=== PATIENT | male | born 1945 | race African-American/Black ===

== ENCOUNTER 2016-06-04 20:27 | Inpatient (IN) | payer MEDICARE, OTHER ==
[~2016-06-04] VITALS: Ht 175.3 cm; Wt 81.6 kg
[2016-06-04 22:13] VITALS: BP 124/95
[2016-06-04] MEDS ORDERED: DuoNeb 0.5-3(2.5)mg/3ml neb HHN PRN (22:45)
[2016-06-04] MEDS ORDERED: Miralax 17gm pkt ORAL PRN (22:45)
[2016-06-04] MEDS ORDERED: Morphine Sulfate 2mg/ml Inj IVP PRN (22:45)
[2016-06-04] MEDS ORDERED: Nitroglycerin Subl 0.4mg tab (Bottle Of 25) SL PRN (22:45)
[2016-06-04 22:48] LABS: APPEARANCE,URINE CLEAR; KETONES,URINE NEGATIVE (NEGATIVE); LEUKOCYTE ESTERASE ,URINE NEGATIVE (NEGATIVE); NITRITE,URINE NEGATIVE (NEGATIVE); PH,URINE 5 (4.5-8.0); PROTEIN,URINE NEGATIVE (NEGATIVE); UROBILINOGEN,URINE NORMAL MG/DL (0.0-1.0)
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
[2016-06-04 23:36] VITALS: BP 122/90
[2016-06-04] MEDS ORDERED: Acetaminophen 650 MG SUPP RECTAL ONE (23:45)
[2016-06-04 23:48] LABS: EOSINOPHILS % (AUTO) 0.3 % (0.0-3.0); LYMPHOCYTES % (AUTO) 5.5 % (20.0-45.0); MEAN CORPUSCULAR HEMOGLOBIN 31.3 PG (27.0-31.0); MEAN CORPUSCULAR HGB CONC 33.5 G/DL (32.0-36.0); MEAN CORPUSCULAR VOLUME 93 FL (80-99); MEAN PLATELET VOLUME 9.1 FL (6.5-10.1); NEUTROPHILS % (AUTO) 82.1 % (45.0-75.0); PLATELET COUNT 141 K/UL (150-450); RED CELL DISTRIBUTION WIDTH 12.7 % (11.6-14.8); WHITE BLOOD COUNT 10.7 K/UL (4.8-10.8)
[2016-06-04 23:49] LABS: INR 1.3 (0.9-1.1); PROTHROMBIN TIME 13.4 SEC (9.30-11.50)
[2016-06-04 23:56] LABS: TROPONIN I < 0.30 ng/mL (<=0.30)
[2016-06-04 23:59] LABS: ALANINE AMINOTRANSFERASE 6 U/L (3-41); ALBUMIN/GLOBULIN RATIO 1.4 (1.0-2.7); ANION GAP 17 (5-15); ASPARTATE AMINO TRANSFERASE 22 U/L (5-40); CALCIUM 8.2 mg/dL (8.6-10.2); CARBON DIOXIDE 20 mEQ/L (20-30); CHLORIDE 104 mEQ/L (98-107); CREATININE 1.5 mg/dL (0.7-1.2); HEMOLYSIS 4; LIPASE 47 U/L (< 60); POTASSIUM 4.4 mEQ/L (3.4-4.9); SODIUM 141 mEQ/L (135-145); TOTAL PROTEIN 6.2 g/dL (6.6-8.7)
[2016-06-05] VITALS (8 sets, daily range): BP systolic 97–135; BP diastolic 52–60
[2016-06-05] MEDS ORDERED: Vancomycin 1.5 GM in D5W 325 ML IVPB STA (00:11)
[2016-06-05] MEDS ORDERED: metroNIDAZOLE 500mg 100 ML IVPB ONE (00:15)
[2016-06-05] MEDS ORDERED: Cefepime HCl 1 GM in D5W 55 ML IVPB ONE (00:15)
[2016-06-05] MEDS ORDERED: Cefepime 1gm vial ONE (00:21)
[2016-06-05] MEDS ORDERED: Vancomycin 1 GM in D5W 275 ML IV SCH (00:30)
[2016-06-05] MEDS ORDERED: VITAMIN B-1100 MG ORAL (01:13)
[2016-06-05] MEDS ORDERED: LISINOPRIL20 MG ORAL (01:13)
[2016-06-05] MEDS ORDERED: IBUPROFEN600 MG ORAL (01:13)
[2016-06-05] MEDS ORDERED: ZOCOR20 M1 ORAL (01:13)
[2016-06-05] MEDS ORDERED: TYLENOL EXTRA500 MG ORAL (01:13)
[2016-06-05] MEDS ORDERED: FUROSEMIDE40 MG ORAL (01:13)
[2016-06-05] MEDS ORDERED: IPRATROPIU0.2 MG/1 M HHN (01:13)
[2016-06-05] MEDS ORDERED: LEVETIRACETAM500 MG ORAL (01:13)
[2016-06-05] MEDS ORDERED: MULTIVITAMINS1 EAC8 ORAL (01:13)
[2016-06-05] MEDS ORDERED: EMLA CREAM30 GM TOPIC (01:13)
[2016-06-05] MEDS ORDERED: VITAMIN C500 M1 ORAL (01:13)
[2016-06-05] MEDS ORDERED: TRAZODONE HCL50 MG ORAL (01:13)
[2016-06-05] MEDS ORDERED: ACIDOPHILUS PR1 EACH PO (01:13)
[2016-06-05] MEDS ORDERED: LYRICA75 M1 ORAL (01:13)
[2016-06-05] MEDS ORDERED: SYNTHROID25 MCG ORAL (01:13)
[2016-06-05] MEDS ORDERED: MUSCLE RUB CRE113 GM TP (01:13)
[2016-06-05] MEDS ORDERED: Vancomycin 1gm inj IVPB ONE (01:39)
[2016-06-05] MEDS ORDERED: Vancomycin 1.5gm/D5W 300ml 300 ML IVPB ONE (02:00)
[2016-06-05 07:04] LABS: ALANINE AMINOTRANSFERASE 8 U/L (3-41); ALBUMIN/GLOBULIN RATIO 1.6 (1.0-2.7); ANION GAP 16 (5-15); ASPARTATE AMINO TRANSFERASE 31 U/L (5-40); CALCIUM 8.5 mg/dL (8.6-10.2); CARBON DIOXIDE 21 mEQ/L (20-30); CHLORIDE 102 mEQ/L (98-107); CREATININE 1.5 mg/dL (0.7-1.2); HEMOLYSIS 3; POTASSIUM 4.3 mEQ/L (3.4-4.9); SODIUM 139 mEQ/L (135-145)
[2016-06-05 07:33] LABS: BASOPHILS % (AUTO) 0.8 % (0.0-2.0); EOSINOPHILS % (AUTO) 0.1 % (0.0-3.0); LYMPHOCYTES % (AUTO) 9.8 % (20.0-45.0); MEAN CORPUSCULAR HEMOGLOBIN 30.6 PG (27.0-31.0); MEAN CORPUSCULAR HGB CONC 32.5 G/DL (32.0-36.0); MEAN CORPUSCULAR VOLUME 94 FL (80-99); MONOCYTES % (AUTO) 13.2 % (1.0-10.0); NEUTROPHILS % (AUTO) 76.1 % (45.0-75.0); PLATELET COUNT 147 K/UL (150-450); RED BLOOD COUNT 3.74 M/UL (4.70-6.10); RED CELL DISTRIBUTION WIDTH 12.7 % (11.6-14.8); WHITE BLOOD COUNT 8.5 K/UL (4.8-10.8)
[2016-06-05] MEDS ORDERED: Cefepime HCl 2 GM in D5W 110 ML IV SCH (09:00)
--- NOTE | 2016-06-05 09:44 | Diagnostic Imaging Report ---
Indication: ABD DIST, abdominal pain Technique: Spiral acquisitions obtained through the abdomen and pelvis. No oral contrast utilized, per emergency room physician request No IV contrast utilized, per referring physician request.. Multiplanar reconstructions were generated. Total dose length product 1026 mGycm. CTDIvol(s) 19 mGy Comparison: None Findings: There is colonic diverticulosis. The appendix is normal. There is dilatation of the transverse colon, but no abrupt transition point is demonstrated. There is also distention of the distal sigmoid colon, but no abrupt transition is demonstrated. No small bowel distention. No definite small bowel wall thickening. No free or loculated intraperitoneal air or fluid is evident. The distal esophagus, stomach, duodenum is unremarkable. Lack of IV contrast limits assessment of the solid organs. The liver, gallbladder, bile ducts, pancreas, spleen, adrenals, kidneys are unremarkable. No retroperitoneal or mesenteric mass or adenopathy. No pelvic mass or adenopathy. The bladder is empty, contains a Coffman catheter. The lung bases demonstrate compressive atelectatic changes. Metallic foreign bodies are seen in the upper abdomen anterior and superior to the left lobe liver. There are mild degenerative changes of the lower thoracic spine. There is equivocally a very slight wedge compression fracture deformity of the T11 vertebral body. Impression: Focal areas of dilatation of the colon, as described, probably functional as no transition or obstructing lesion is demonstrated No definite acute process otherwise Diverticulosis. No evidence of diverticulitis Bilateral basilar compressive pulmonary parenchymal atelectatic changes Equivocal slight wedge compression fracture deformity of the T11 vertebral body, age indeterminate if real Metallic foreign bodies in the upper anterior abdomen. Correlate with clinical history Coffman catheter This agrees with the preliminary interpretation provided overnight by [facility] teleradiology service. The CT scanner at [facility] is accredited by the [employer] and the scans are performed using protocols designed to limit radiation exposure to as low as reasonably achievable to attain images of sufficient resolution adequate for diagnostic evaluation.
[2016-06-05] MEDS: Heparin 5000 units/ml inj SUBQ SCH ×2 (10:20→21:00)
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
--- NOTE | 2016-06-05 11:41 | Consultation ---
Consult Note Consult Note ID Dic# [id number] JENNY GAMBLE M.D. Jun 05, 2016 11:41
--- NOTE | 2016-06-05 18:04 | History & Physical ---
History and Physical History & Physicial Dictated for Int Med-Dr Medrano no. [id number]. FACUNDO SAENZ Jun 05, 2016 18:04
--- NOTE | 2016-06-05 22:08 | History and Physical Report ---
DATE OF ADMISSION: 06/04/2016 CHIEF COMPLAINT: The patient is a 71-year-old male, presents with complaint of fever. HISTORY OF PRESENT ILLNESS: The patient is a resident of [facility]. According to staff at [facility], the patient began to experience fevers over 101 degrees Fahrenheit. The patient was transferred to [facility] emergency room. The patient denied cough. The patient denied dysuria. The patient was admitted for fever of unknown origin. PAST MEDICAL HISTORY: Significant for, 1. Alzheimer's dementia. 2. History of cerebrovascular accident. 3. Right hemiplegia . 4. Bilateral lower extremity edema. 5. Prostate cancer. 6. Hypertension. PAST SURGICAL HISTORY: The patient denies. CURRENT MEDICATIONS: 1. Tylenol 650 mg one tablet p.o. every four hours as needed. 2. Ibuprofen 600 mg one tablet p.o. every 6 hours as needed. 3. Atrovent nebulized q.6 hours p.r.n. 4. Lasix 40 mg one tablet p.o. daily. 5. Keppra 500 mg p.o. twice daily. 6. Lisinopril 20 mg one tablet p.o. twice daily. 7. Multivitamin p.o. daily. 8. Lyrica 75 mg one tablet p.o. three times daily. 9. Zocor 20 mg one tablet p.o. at nightly . 10. Synthroid 50 mcg p.o. daily. 11. Thiamin 100 mg p.o. daily. 12. Trazodone 50 mg one tablet p.o. at nightly. ALLERGIES: No known drug allergies. REVIEW OF SYSTEMS: Constitutional: The patient denies weight loss or weight gain. The patient complains of fever as above. HEENT: The patient denies ear or throat pain. The patient denies headache. Cardiovascular: The patient denies palpitations or chest pain. Chest: The patient denies wheezes or shortness of breath. Abdomen: The patient denies nausea, vomiting, diarrhea, or constipation. Genitourinary: The patient denies dysuria or increased frequency of urination. Neuromuscular: The patient denies seizures or generalized weakness. SOCIAL HISTORY: The patient is a . The patient is a resident of [facility]. The patient denies tobacco or alcohol use. PHYSICAL EXAMINATION: VITAL SIGNS: Temperature 101.7 degrees, pulse 93, respirations 18, and blood pressure 120/54. GENERAL: The patient is a well-developed and well-nourished male, in no apparent distress. HEENT: Eyes, pupils are equal and responsive to light and accommodation. Extraocular movements intact. NECK: Supple without lymphadenopathy. CHEST: Lungs are clear to auscultation bilaterally without wheezes or rales. CARDIOVASCULAR: Regular rhythm and rate. S1, S2 normal without murmurs, rubs, or gallops. ABDOMEN: Soft, nontender, and nondistended. Positive bowel sounds. No evidence of hepatosplenomegaly. Currently, no rebound or guarding. EXTREMITIES: Negative for clubbing, cyanosis, or edema. RECTAL/GENITAL: Refused. NEUROLOGIC: The patient does have right hemiplegia. Motor strength on the right is 3/5 bilaterally on the right. Motor strength is 4/5 on the left. LABORATORY STUDIES: WBC 10.7, hemoglobin 11.9, hematocrit 35.5, and platelets 141,000. Sodium 141, potassium 4.1, chloride 104, CO2 20, BUN 25, creatinine 1.5, and glucose 118. Troponin less than 0.3. BNP elevated at 949. Urinalysis was within normal limits. CT of the abdomen revealed diverticulosis and focal dilation of the colon, which is probably functional. A chest x-ray showed cardiomegaly otherwise no acute disease. ASSESSMENT: This is a 71-year-old male, 1. Fever. 2. Congestive heart failure. 3. Cardiomegaly. 4. Hypertension. 5. Cerebrovascular disease. 6. Hypothyroidism. 7. Hypercholesterolemia. TREATMENT: 1. Fever. An Infectious Disease consultation has been obtained with Dr. Bynum. Urine and blood cultures are pending. The patient has been started empirically on Levaquin, Flagyl, and vancomycin. We will follow recommendation of Infectious Disease. 2. Congestive heart failure cardiomegaly. An echocardiogram is pending. A Cardiology consultation with Dr. Gonzalez Romero. The patient is currently receiving intravenous Lasix. 3. Hypertension. Continue lisinopril as above. 4. Cerebrovascular disease, status post cerebrovascular accident. 5. Hypothyroidism. Continue Synthroid as above. 6. Hypercholesterolemia. Continue Zocor as above. 7. Prostate cancer. The patient appears to be status post radical prostatectomy. Bill Calzada M.D. DR: Jose JOB#: [id number] CC:
--- NOTE | 2016-06-05 23:13 | Consultation ---
History of Present Illness General Date patient seen: Jun 05, 2016 Chief Complaint: fever and dyspnea Referring physician: Dr Medrano Reason for Consultation: Left lung effusion shortness of breath Present Illness HPI 71 yo man with pmhx CVA and HTN presenting with co fever and cough with difficulty breathing. Initial CXR done in ER revealed a left lung effusion I was requested to evaluate the patients respiratory status. The patient appears lethargic and simply gives a history of cough and congestion for the past 5 days with difficulty breathing. The patient has been placed on broad spectrum antibiotics and oxygen supplementally with breathing tx as needed for shortness of breath. Further diagnostics revealed an elevated white count. Allergies: Coded Allergies: No Known Allergies (Unverified , 06/04/16) Medication History Scheduled Ascorbic Acid* (Vitamin C*), 500 MG ORAL DAILY, (Reported) Furosemide* (Lasix*), 40 MG ORAL DAILY, (Reported) Levetiracetam* (Levetiracetam*), 500 MG ORAL TWICE A DAY, (Reported) Levothyroxine Sodium* (Synthroid*), 50 MCG ORAL DAILY, (Reported) Multivitamin With Minerals (Multivitamins With Minerals*), 1 TAB ORAL DAILY, ( Reported) Pregabalin* (Lyrica*), 75 MG ORAL THREE TIMES A DAY, (Reported) Simvastatin (Zocor), 20 MG ORAL BEDTIME, (Reported) Thiamine Hcl* (Vitamin B-1*), 100 MG ORAL DAILY, (Reported) Trazodone Hcl* (Desyrel*), 50 MG ORAL BEDTIME, (Reported) Scheduled PRN Acetaminophen* (Tylenol Extra Strength*), 500 MG ORAL Q8H PRN for For Pain, ( Reported) Ibuprofen* (Motrin*), 600 MG ORAL Q8H PRN for For Pain, (Reported) Ipratropium Zarephath 0.5MG/2.5ML (Ipratropium Zarephath 0.5MG/2.5ML), 0.5 MG HHN Q6H PRN for Shortness of Breath, (Reported) Lidocaine/Prilocaine (Emla Cream), 1 APPLIC TOPIC EVERY 8 HOURS PRN for For Pain , (Reported) Miscellaneous Medications Acidophilus/Pectin, [place] (Acidophilus Probiotic Capsule), 1 EACH PO, (Reported ) Methyl Salicylate/Menthol (Muscle Rub Cream), Unknown Dose TP, (Reported) Patient History Healthcare decision maker Resuscitation status Full Code Advanced Directive on File Past Medical/Surgical History Past Medical/Surgical History: (1) Sepsis (2) Congestive heart failure (3) Cardiomegaly (4) Fever (5) Hypercholesteremia (6) Hypothyroidism (7) Prostate cancer (8) HTN (hypertension) (9) Cerebral vascular disease Review of Systems Constitutional: Reports: chills, fever, malaise, sweats, weakness Respiratory: Reports: HANEY, cough, shortness of breath, sputum, wheezing Physical Exam General Appearance: confused, moderate distress Lines, tubes and drains: peripheral HEENT: normocephalic, atraumatic, PERRL Neck: non-tender, normal alignment, supple, normal inspection Respiratory/Chest: chest wall non-tender, accessory muscle use, crackles/rales , rhonchi - left, expiratory wheezing, pleural rub Breasts: no masses Cardiovascular/Chest: no JVD, tachycardia Abdomen: normal bowel sounds, non tender, soft, no organomegaly Genitourinary/Rectal: normal genital exam, normal rectal exam Extremities: normal range of motion, non-tender, normal inspection Skin Exam: normal pigmentation, warm/dry 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 grossly normal, responsive, abnormal CN, disoriented Last 24 Hour Vital Signs Date Time Temp Pulse Resp B/P Pulse Ox O2 Delivery O2 Flow Rate FiO2 06/05/16 19:45 90 18 Room Air 21 06/05/16 16:00 98.2 78 19 131/56 98 Room Air 06/05/16 12:27 98.2 72 20 135/52 95 Room Air 72 06/05/16 08:10 88 18 Room Air 21 06/05/16 08:00 98.2 72 19 105/52 94 Room Air 06/05/16 05:30 99.0 06/05/16 04:00 100.2 89 18 97/53 94 Room Air 06/05/16 03:05 101.7 93 18 120/54 93 Room Air 06/05/16 02:11 101.5 96 21 102/55 94 Room Air 109 06/05/16 02:10 101.5 96 21 102/55 94 Room Air 06/05/16 01:15 101.2 06/05/16 01:03 101.2 102 21 108/53 94 Room Air 06/04/16 23:36 103.4 109 22 122/90 94 Room Air Intake and Output 06/04/16 06/05/16 19:00 07:00 Intake Total 2555 ml Output Total 620 ml Balance 1935 ml IV Total 2555 ml Output Urine Total 620 ml Laboratory Tests Test 06/04/16 23:25 06/05/16 05:10 White Blood Count 10.7 K/UL (4.8-10.8) 8.5 K/UL (4.8-10.8) Red Blood Count 3.80 M/UL (4.70-6.10) L 3.74 M/UL (4.70-6.10) L Hemoglobin 11.9 G/DL (14.2-18.0) L 11.5 G/DL (14.2-18.0) L Hematocrit 35.5 % (42.0-52.0) L 35.2 % (42.0-52.0) L Mean Corpuscular Volume 93 FL (80-99) 94 FL (80-99) Mean Corpuscular Hemoglobin 31.3 PG (27.0-31.0) H 30.6 PG (27.0-31.0) Mean Corpuscular Hemoglobin Concent 33.5 G/DL (32.0-36.0) 32.5 G/DL (32.0-36.0) Red Cell Distribution Width 12.7 % (11.6-14.8) 12.7 % (11.6-14.8) Platelet Count 141 K/UL (150-450) L 147 K/UL (150-450) L Mean Platelet Volume 9.1 FL (6.5-10.1) 9.0 FL (6.5-10.1) Neutrophils (%) (Auto) 82.1 % (45.0-75.0) H 76.1 % (45.0-75.0) H Lymphocytes (%) (Auto) 5.5 % (20.0-45.0) L 9.8 % (20.0-45.0) L Monocytes (%) (Auto) 10.0 % (1.0-10.0) 13.2 % (1.0-10.0) H Eosinophils (%) (Auto) 0.3 % (0.0-3.0) 0.1 % (0.0-3.0) Basophils (%) (Auto) 2.0 % (0.0-2.0) 0.8 % (0.0-2.0) Prothrombin Time 13.4 SEC (9.30-11.50) H Prothromb Time International Ratio 1.3 (0.9-1.1) H Activated Partial Thromboplast Time 31 SEC (23-33) Sodium Level 141 mEQ/L (135-145) 139 mEQ/L (135-145) Potassium Level 4.4 mEQ/L (3.4-4.9) 4.3 mEQ/L (3.4-4.9) Chloride Level 104 mEQ/L (98-107) 102 mEQ/L (98-107) Carbon Dioxide Level 20 mEQ/L (20-30) 21 mEQ/L (20-30) Anion Gap 17 (5-15) H 16 (5-15) H Blood Urea Nitrogen 25 mg/dL (7-23) H 25 mg/dL (7-23) H Creatinine 1.5 mg/dL (0.7-1.2) H 1.5 mg/dL (0.7-1.2) H Estimat Glomerular Filtration Rate mL/min (>60) mL/min (>60) Glucose Level 118 mg/dL (74-106) H 111 mg/dL (74-106) H Lactic Acid Level 0.60 mmol/L (0.66-2.22) L Calcium Level 8.2 mg/dL (8.6-10.2) L 8.5 mg/dL (8.6-10.2) L Total Bilirubin 0.4 mg/dL (0.0-1.2) 0.5 mg/dL (0.0-1.2) Aspartate Amino Transf (AST/SGOT) 22 U/L (5-40) 31 U/L (5-40) Alanine Aminotransferase (ALT/SGPT) 6 U/L (3-41) 8 U/L (3-41) Alkaline Phosphatase 93 U/L (40-129) 85 U/L (40-129) Total Creatine Kinase 407 U/L (38-174) H Troponin I < 0.30 ng/mL (<=0.30) Pro-B-Type Natriuretic Peptide 949 pg/mL (0-125) H Total Protein 6.2 g/dL (6.6-8.7) L 6.0 g/dL (6.6-8.7) L Albumin 3.7 g/dL (3.5-5.2) 3.7 g/dL (3.5-5.2) Globulin 2.5 g/dL 2.3 g/dL Albumin/Globulin Ratio 1.4 (1.0-2.7) 1.6 (1.0-2.7) Lipase 47 U/L (< 60) Height (Feet): 5 Height (Inches): 9.00 Weight (Pounds): 180 Medications Current Medications Medications (Trade) Dose Ordered Sig/Bradley Route PRN Reason Start Time Stop Time Status Last Admin Dose Admin Acetaminophen (Tylenol) 650 mg Q4H PRN ORAL fever 06/04/16 22:45 07/04/16 22:44 06/05/16 22:44 Albuterol/ Ipratropium (DuoNeb 0.5-3(2.5)mg/3ml) 3 ml EVERY 4 HOURS PRN HHN Shortness of Breath 06/04/16 22:45 06/09/16 22:44 Furosemide (Lasix) 20 mg DAILY IV 06/05/16 17:30 07/05/16 17:29 06/05/16 17:49 Heparin Sodium (Porcine) (Heparin 5000 units/ml) 5,000 units EVERY 12 HOURS SUBQ 06/05/16 09:00 07/05/16 08:59 06/05/16 10:20 Levofloxacin (Levaquin 750mg/ D5W) 150 ml @ 100 mls/hr Q48H IVPB 06/05/16 16:00 06/12/16 15:59 06/05/16 16:05 Morphine Sulfate (Morphine Sulfate) 2 mg EVERY 4 HOURS PRN IVP Moderate Pain (Pain Scale 4-6) 06/04/16 22:45 06/11/16 22:44 Nitroglycerin (Ntg) 0.4 mg Q 5 MINPRN PRN SL Prn Chest Pain 06/04/16 22:45 07/04/16 22:44 Ondansetron HCl (Zofran) 4 mg Q6H PRN IVP Nausea & Vomiting 06/04/16 22:45 07/04/16 22:44 Polyethylene Glycol (Miralax) 17 gm DAILYPRN PRN ORAL Constipation 06/04/16 22:45 07/04/16 22:44 Temazepam (Restoril) 15 mg HSPRN PRN ORAL Insomnia 06/04/16 22:45 06/11/16 22:44 Vancomycin HCl 1.25 gm/Dextrose 275 ml @ 183.333 mls/hr Q24H IVPB 06/06/16 02:00 06/11/16 01:59 Vancomycin HCl 1 ea 1 ea DAILY PRN MISC . 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
[2016-06-06] VITALS: BP 129/52
--- NOTE | 2016-06-06 00:08 | Consultation ---
DATE OF CONSULTATION: 06/05/2016 CONSULTING PHYSICIAN: Steve Bynum M.D REFERRING PHYSICIANS: Caleb Medrano M.D. and Halle Velez M.D. REASON FOR CONSULTATION: Evaluation of the patient for sepsis, fever, and antibiotic management. HISTORY OF PRESENT ILLNESS: The patient is a 71-year-old male with multiple medical problems as listed below who was admitted to this medical center from a group home facility due to fever and generalized weakness. The patient was found to have at this time fever and has been started on IV antibiotics. Infectious Disease consultation has been requested for further evaluation of the patient and antibiotic management. Also, the patient has increased abdominal girth. PAST MEDICAL HISTORY: 1. Dementia. 2. Seizure disorder. 3. Hyperlipidemia. 4. Hypertension. 5. Pneumonia. 6. Obstructive sleep apnea. 7. Diverticulosis. 8. Osteoarthritis. 9. Hypothyroidism. 10. Depression. ALLERGIES: No known drug allergies. SOCIAL HISTORY: The patient lives in a residential. FAMILY HISTORY: Noncontributory. REVIEW OF SYSTEMS: Limited. The patient is a poor historian. ANTIBIOTICS: Vancomycin and cefepime. PHYSICAL EXAMINATION: VITAL SIGNS: Temperature 98.2, T-max 103.4, blood pressure 105/62, pulse 72, and respiratory rate 18. HEENT: Mild pale conjunctivae. No icterus. NECK: No lymphadenopathy. CHEST: Coarse breathing sounds. HEART: S1 and S2. ABDOMEN: Soft, obese, distended, and nontender. EXTREMITIES: No cyanosis. NEUROLOGIC: Alert and awake. LABORATORY DATA: White blood cell count 8.5, hemoglobin 11.5, and platelets 147,000. UA unremarkable. BUN 25 and creatinine 1.4. ALT, AST, and alkaline phosphatase unremarkable. Lipase 47. CT scan of the abdomen showed focal dilation of the colon. No acute process. Diverticulosis. Bilateral lung atelectasis. Chest x-ray, NAPD. ASSESSMENT: The patient is a 71-year-old male with multiple medical problems who has been admitted to this medical center for fever and generalized weakness. The patient has abdominal distention; however, CT scan has not showed any significant findings. The patient has no possible source of infection. It is important to rule out possibility of influenza and in view of the patient coming from residential, it is important to rule out possibility of bacteremia. PLAN: 1. Continue the patient on vancomycin and we will change cefepime to Levaquin to cover also possible bronchitis or underlying pneumonia. 2. Monitor CBC. 3. Monitor BMP. 4. Monitor cultures (blood, sputum, and urine). 5. Influenza screening from nasal swab. 6. Monitor chest x-ray. 7. Based on the patient's clinical course and labs, we will do further recommendation. Thank you, Dr. Velez, for allowing me to participate in the care of this patient. I will follow the patient with you during this hospitalization. Steve Bynum M.D. DR: CHELY JOB#: [id number] CC:
[2016-06-06] MEDS ORDERED: Vancomycin 1.5 GM in D5W 325 ML IVPB SCH (00:30)
[2016-06-06] MEDS ORDERED: Vancomycin 1250mg/D5W 275ml IVPB SCH ×2 (02:00)
[2016-06-06 04:00] VITALS: BP 126/51
[2016-06-06 04:26] LABS: BASOPHILS % (AUTO) 0.9 % (0.0-2.0); MEAN CORPUSCULAR HEMOGLOBIN 31.5 PG (27.0-31.0); MEAN CORPUSCULAR HGB CONC 33.5 G/DL (32.0-36.0); MEAN CORPUSCULAR VOLUME 94 FL (80-99); MEAN PLATELET VOLUME 9.8 FL (6.5-10.1); MONOCYTES % (AUTO) 14.9 % (1.0-10.0); NEUTROPHILS % (AUTO) 55.2 % (45.0-75.0); PLATELET COUNT 120 K/UL (150-450); RED BLOOD COUNT 3.61 M/UL (4.70-6.10); RED CELL DISTRIBUTION WIDTH 12.7 % (11.6-14.8); WHITE BLOOD COUNT 4.1 K/UL (4.8-10.8)
[2016-06-06 07:14] LABS: ANION GAP 15 (5-15); CALCIUM 8.8 mg/dL (8.6-10.2); CARBON DIOXIDE 23 mEQ/L (20-30); CHLORIDE 101 mEQ/L (98-107); CREATININE 1.2 mg/dL (0.7-1.2); HEMOLYSIS 5; POTASSIUM 3.6 mEQ/L (3.4-4.9); SODIUM 139 mEQ/L (135-145)
[2016-06-06 07:39] LABS: PSA TOTAL 1.9 ng/mL (< 4.5)
[2016-06-06 08:00] VITALS: BP 118/62
[2016-06-06] MEDS: Heparin 5000 units/ml inj SUBQ SCH ×2 (09:00→20:50)
[2016-06-06 11:40] VITALS: BP 122/65
--- NOTE | 2016-06-06 12:36 | Internal Med Progress Note ---
Subjective Date of Service: Jun 06, 2016 Physician Name ElsiFacundo Attending Physician Caleb Medrano MD Current Medications Medications (Trade) Dose Ordered Sig/Bradley Route PRN Reason Start Time Stop Time Status Last Admin Dose Admin Acetaminophen (Tylenol) 650 mg Q4H PRN ORAL fever 06/04/16 22:45 07/04/16 22:44 06/05/16 22:44 Albuterol/ Ipratropium (DuoNeb 0.5-3(2.5)mg/3ml) 3 ml EVERY 4 HOURS PRN HHN Shortness of Breath 06/04/16 22:45 06/09/16 22:44 Furosemide (Lasix) 20 mg DAILY IV 06/05/16 17:30 07/05/16 17:29 06/06/16 09:09 Heparin Sodium (Porcine) (Heparin 5000 units/ml) 5,000 units EVERY 12 HOURS SUBQ 06/05/16 09:00 07/05/16 08:59 06/05/16 10:20 Levofloxacin (Levaquin 750mg/ D5W) 150 ml @ 100 mls/hr Q48H IVPB 06/05/16 16:00 06/12/16 15:59 06/05/16 16:05 Morphine Sulfate (Morphine Sulfate) 2 mg EVERY 4 HOURS PRN IVP Moderate Pain (Pain Scale 4-6) 06/04/16 22:45 06/11/16 22:44 Nitroglycerin (Ntg) 0.4 mg Q 5 MINPRN PRN SL Prn Chest Pain 06/04/16 22:45 07/04/16 22:44 Ondansetron HCl (Zofran) 4 mg Q6H PRN IVP Nausea & Vomiting 06/04/16 22:45 07/04/16 22:44 Polyethylene Glycol (Miralax) 17 gm DAILYPRN PRN ORAL Constipation 06/04/16 22:45 07/04/16 22:44 Temazepam (Restoril) 15 mg HSPRN PRN ORAL Insomnia 06/04/16 22:45 06/11/16 22:44 Vancomycin HCl 1.25 gm/Dextrose 275 ml @ 183.333 mls/hr Q24H IVPB 06/06/16 02:00 06/11/16 01:59 06/06/16 01:36 Vancomycin HCl 1 ea 1 ea DAILY PRN MISC . 06/05/16 07:00 07/05/16 06:59 Allergies: Coded Allergies: No Known Allergies (Unverified , 06/04/16) ROS Limited/Unobtainable: No Constitutional: Reports: chills, fever HEENT: Reports: no symptoms Cardiovascular: Reports: no symptoms Respiratory: Reports: shortness of breath Gastrointestinal/Abdominal: Reports: no symptoms Genitourinary: Reports: no symptoms Neurologic/Psychiatric: Reports: no symptoms Subjective 71 YO M admitted with fever, now gary heart failure. Cover for Int Med-Dr Medrano Objective Last Vital Signs Date Time Temp Pulse Resp B/P Pulse Ox O2 Delivery O2 Flow Rate FiO2 06/06/16 11:40 98.2 64 16 122/65 96 Room Air 06/06/16 07:58 21 General Appearance: WD/WN, no apparent distress, alert EENT: PERRL/EOMI, normal ENT inspection, TMs normal Neck: non-tender, normal alignment, supple Cardiovascular: normal peripheral pulses, normal rate, regular rhythm, no gallop/murmur, no JVD Respiratory/Chest: crackles/rales, rhonchi - bilaterally, expiratory wheezing Abdomen: normal bowel sounds, non tender, soft, no organomegaly, no mass Extremities: normal range of motion Neurologic: administrative director II-XII grossly normal, no motor/sensory deficits Laboratory Tests Test 06/06/16 03:25 White Blood Count 4.1 K/UL (4.8-10.8) #L Red Blood Count 3.61 M/UL (4.70-6.10) L Hemoglobin 11.4 G/DL (14.2-18.0) L Hematocrit 33.9 % (42.0-52.0) L Mean Corpuscular Volume 94 FL (80-99) Mean Corpuscular Hemoglobin 31.5 PG (27.0-31.0) H Mean Corpuscular Hemoglobin Concent 33.5 G/DL (32.0-36.0) Red Cell Distribution Width 12.7 % (11.6-14.8) Platelet Count 120 K/UL (150-450) L Mean Platelet Volume 9.8 FL (6.5-10.1) Neutrophils (%) (Auto) 55.2 % (45.0-75.0) Lymphocytes (%) (Auto) 27.0 % (20.0-45.0) Monocytes (%) (Auto) 14.9 % (1.0-10.0) H Eosinophils (%) (Auto) 2.0 % (0.0-3.0) Basophils (%) (Auto) 0.9 % (0.0-2.0) Sodium Level 139 mEQ/L (135-145) Potassium Level 3.6 mEQ/L (3.4-4.9) Chloride Level 101 mEQ/L (98-107) Carbon Dioxide Level 23 mEQ/L (20-30) Anion Gap 15 (5-15) Blood Urea Nitrogen 18 mg/dL (7-23) Creatinine 1.2 mg/dL (0.7-1.2) Estimat Glomerular Filtration Rate mL/min (>60) Glucose Level 135 mg/dL (74-106) H Calcium Level 8.8 mg/dL (8.6-10.2) Pro-B-Type Natriuretic Peptide 635 pg/mL (0-125) H Prostate Specific Antigen 1.9 ng/mL (< 4.5) Free Prostate Specific Antigen Pending Percent Free Prostate Specific Ag Pending Prostate Specific Antigen Total Pending Thyroid Stimulating Hormone (TSH) 4.100 uIU/mL (0.300-4.500) Microbiology Date/Time Source Procedure Growth Status 06/04/16 23:25 Blood Blood Culture - Preliminary NO GROWTH AFTER 24 HOURS Resulted 06/04/16 23:10 Blood Blood Culture - Preliminary NO GROWTH AFTER 24 HOURS Resulted 06/06/16 00:35 Nasopharynx Influenza Types A,B Antigen (DELL) - Final Complete 06/04/16 22:08 Indwelling Cath Urine Culture - Preliminary NO GROWTH AFTER 24 HOURS Resulted Intake and Output 06/05/16 06/06/16 19:00 07:00 Intake Total 630 ml 350 ml Output Total 2500 ml Balance 630 ml -2150 ml Intake Oral 480 ml 350 ml IV Total 150 ml Output Urine Total 2500 ml # Bowel Movements 4 3 Assessment/Plan Problem List: (1) Fever Assessment & Plan: See ID note. Await culture results. Cont vanco and levaquim per ID (2) Congestive heart failure Assessment & Plan: Await cardiology consult. Await echocardiogram. (3) Cardiomegaly (4) HTN (hypertension) (5) Cerebral vascular disease (6) Hypothyroidism Assessment & Plan: TSH normal. (7) Hypercholesteremia (8) Prostate cancer Assessment & Plan: Await PSA result. Status: not improved FACUNDO SAENZ Jun 06, 2016 12:36
--- NOTE | 2016-06-06 14:54 | Cardiology Report ---
APPROVED REPORT EXAM: Two-dimensional and M-mode echocardiogram with Doppler and color Doppler. INDICATION Congestive Heart Failure M-Mode DIMENSIONS IVSd0.7 (0.7-1.1cm)Left Atrium (MM)4.1 (1.6-4.0cm) LVDd5.5 (3.5-5.6cm)Aortic Root2.6 (2.0-3.7cm) PWd0.7 (0.7-1.1cm)Aortic Cusp Exc.2.0 (1.5-2.0cm) LVDs4.1 (2.5-4.0cm) PWs1.0 cm Normal left ventricular chamber size, systolic function and wall motion. Left ventricular ejection fraction estimated to be 60-65%. No evidence of left ventricular hypertrophy. No evidence of pericardial fat or effusion. Mild bi-atrial enlargement by 2D. Focal aortic valve sclerosis with adequate cusp excursion Thickened mitral valve leaflets with normal excursion. Mild mitral annulus and aortic root calcification. Pulmonic valve not well visualized. Normal tricuspid valve structure. IVC not obtainable. A color flow and spectral Doppler study was performed and revealed: Moderate aortic regurgitation. No mitral regurgitation. Left ventricular diastolic dysfunction grade 1. No tricuspid regurgitation.
--- NOTE | 2016-06-06 15:59 | Cardiology Report ---
APPROVED REPORT EKG Measurement Heart [id number] Sinus tachycardia Otherwise normal ECG
[2016-06-06 16:00] VITALS: BP 145/62
--- NOTE | 2016-06-06 17:00 | Infectious Diseases Prog Note ---
Assessment/Plan Assessment/Plan A: The patient is a 71-year-old male with Sepsis Fever improving CT: focal dilation of the colon, Diverticulosis Chest x-ray, NAPD. Flu neg C Diff : Neg Dementia. Seizure disorder. Hyperlipidemia. Hypertension. Pneumonia. Obstructive sleep apnea. Diverticulosis. Osteoarthritis. Hypothyroidism. Depression. PLAN: cont pt on vancomycin , Levaquin d# 2 Monitor CBC. Monitor BMP. Monitor cultures (blood, sputum, and urine). Monitor chest x-ray Subjective Constitutional: Denies: anorexia, chills, drenching sweats, fatigue, fever, no symptoms, other Allergies: Coded Allergies: No Known Allergies (Unverified , 06/04/16) Objective Vital Signs Last 24 Hour Vital Signs Date Time Temp Pulse Resp B/P Pulse Ox O2 Delivery O2 Flow Rate FiO2 06/06/16 11:40 98.2 64 16 122/65 96 Room Air 06/06/16 08:00 98.9 69 20 118/62 96 Room Air 06/06/16 07:58 60 18 Room Air 21 06/06/16 04:00 98.4 59 18 126/51 96 Room Air 06/06/16 00:00 98.4 60 18 129/52 95 Room Air 06/06/16 00:00 98.4 06/05/16 20:00 99.0 77 20 128/60 97 Room Air 06/05/16 19:45 90 18 Room Air 21 Height (Feet): 5 Height (Inches): 9.00 Weight (Pounds): 180 HEENT: atraumatic Respiratory/Chest: lungs clear Cardiovascular: regular rhythm Abdomen: non distended Skin: no rash Microbiology Date/Time Source Procedure Growth Status 06/04/16 23:25 Blood Blood Culture - Preliminary NO GROWTH AFTER 24 HOURS Resulted 06/04/16 23:10 Blood Blood Culture - Preliminary NO GROWTH AFTER 24 HOURS Resulted 06/06/16 00:35 Nasopharynx Influenza Types A,B Antigen (DELL) - Final Complete 06/05/16 07:25 Sputum Gram Stain - Final Resulted 06/05/16 07:25 Sputum Sputum Culture Pending Resulted 06/06/16 00:35 Stool Clostridium difficile Toxin Assay - Final Complete 06/04/16 22:08 Indwelling Cath Urine Culture - Preliminary NO GROWTH AFTER 24 HOURS Resulted Laboratory Tests Test 06/06/16 03:25 White Blood Count 4.1 K/UL (4.8-10.8) #L Red Blood Count 3.61 M/UL (4.70-6.10) L Hemoglobin 11.4 G/DL (14.2-18.0) L Hematocrit 33.9 % (42.0-52.0) L Mean Corpuscular Volume 94 FL (80-99) Mean Corpuscular Hemoglobin 31.5 PG (27.0-31.0) H Mean Corpuscular Hemoglobin Concent 33.5 G/DL (32.0-36.0) Red Cell Distribution Width 12.7 % (11.6-14.8) Platelet Count 120 K/UL (150-450) L Mean Platelet Volume 9.8 FL (6.5-10.1) Neutrophils (%) (Auto) 55.2 % (45.0-75.0) Lymphocytes (%) (Auto) 27.0 % (20.0-45.0) Monocytes (%) (Auto) 14.9 % (1.0-10.0) H Eosinophils (%) (Auto) 2.0 % (0.0-3.0) Basophils (%) (Auto) 0.9 % (0.0-2.0) Sodium Level 139 mEQ/L (135-145) Potassium Level 3.6 mEQ/L (3.4-4.9) Chloride Level 101 mEQ/L (98-107) Carbon Dioxide Level 23 mEQ/L (20-30) Anion Gap 15 (5-15) Blood Urea Nitrogen 18 mg/dL (7-23) Creatinine 1.2 mg/dL (0.7-1.2) Estimat Glomerular Filtration Rate mL/min (>60) Glucose Level 135 mg/dL (74-106) H Calcium Level 8.8 mg/dL (8.6-10.2) Pro-B-Type Natriuretic Peptide 635 pg/mL (0-125) H Prostate Specific Antigen 1.9 ng/mL (< 4.5) Free Prostate Specific Antigen Pending Percent Free Prostate Specific Ag Pending Prostate Specific Antigen Total Pending Thyroid Stimulating Hormone (TSH) 4.100 uIU/mL (0.300-4.500) Current Medications Medications (Trade) Dose Ordered Sig/Bradley Route PRN Reason Start Time Stop Time Status Last Admin Dose Admin Acetaminophen (Tylenol) 650 mg Q4H PRN ORAL fever 06/04/16 22:45 07/04/16 22:44 06/05/16 22:44 Albuterol/ Ipratropium (DuoNeb 0.5-3(2.5)mg/3ml) 3 ml EVERY 4 HOURS PRN HHN Shortness of Breath 06/04/16 22:45 06/09/16 22:44 Furosemide (Lasix) 20 mg DAILY IV 06/05/16 17:30 07/05/16 17:29 06/06/16 09:09 Heparin Sodium (Porcine) (Heparin 5000 units/ml) 5,000 units EVERY 12 HOURS SUBQ 06/05/16 09:00 07/05/16 08:59 06/05/16 10:20 Levofloxacin (Levaquin 750mg/ D5W) 150 ml @ 100 mls/hr Q48H IVPB 06/05/16 16:00 06/12/16 15:59 06/05/16 16:05 Morphine Sulfate (Morphine Sulfate) 2 mg EVERY 4 HOURS PRN IVP Moderate Pain (Pain Scale 4-6) 06/04/16 22:45 06/11/16 22:44 Nitroglycerin (Ntg) 0.4 mg Q 5 MINPRN PRN SL Prn Chest Pain 06/04/16 22:45 07/04/16 22:44 Ondansetron HCl (Zofran) 4 mg Q6H PRN IVP Nausea & Vomiting 06/04/16 22:45 07/04/16 22:44 Polyethylene Glycol (Miralax) 17 gm DAILYPRN PRN ORAL Constipation 06/04/16 22:45 07/04/16 22:44 Temazepam (Restoril) 15 mg HSPRN PRN ORAL Insomnia 06/04/16 22:45 06/11/16 22:44 Vancomycin HCl 1.25 gm/Dextrose 275 ml @ 183.333 mls/hr Q24H IVPB 06/06/16 02:00 06/11/16 01:59 06/06/16 01:36 Vancomycin HCl 1 ea 1 ea DAILY PRN MISC . 06/05/16 07:00 07/05/16 06:59 JENNY GAMBLE M.D. Jun 06, 2016 17:00
--- NOTE | 2016-06-06 17:23 | Cardiac Electrophysiology PN ---
Subjective Subjective [id number].Sinus Tachycardia due to sepsis. Echo NL EF Objective Last 24 Hour Vital Signs Date Time Temp Pulse Resp B/P Pulse Ox O2 Delivery O2 Flow Rate FiO2 06/06/16 11:40 98.2 64 16 122/65 96 Room Air 06/06/16 08:00 98.9 69 20 118/62 96 Room Air 06/06/16 07:58 60 18 Room Air 21 06/06/16 04:00 98.4 59 18 126/51 96 Room Air 06/06/16 00:00 98.4 60 18 129/52 95 Room Air 06/06/16 00:00 98.4 06/05/16 20:00 99.0 77 20 128/60 97 Room Air 06/05/16 19:45 90 18 Room Air 21 Intake and Output 06/05/16 06/06/16 19:00 07:00 Intake Total 630 ml 350 ml Output Total 2500 ml Balance 630 ml -2150 ml Intake Oral 480 ml 350 ml IV Total 150 ml Output Urine Total 2500 ml # Bowel Movements 4 3 Laboratory Tests Test 06/06/16 03:25 White Blood Count 4.1 K/UL (4.8-10.8) #L Red Blood Count 3.61 M/UL (4.70-6.10) L Hemoglobin 11.4 G/DL (14.2-18.0) L Hematocrit 33.9 % (42.0-52.0) L Mean Corpuscular Volume 94 FL (80-99) Mean Corpuscular Hemoglobin 31.5 PG (27.0-31.0) H Mean Corpuscular Hemoglobin Concent 33.5 G/DL (32.0-36.0) Red Cell Distribution Width 12.7 % (11.6-14.8) Platelet Count 120 K/UL (150-450) L Mean Platelet Volume 9.8 FL (6.5-10.1) Neutrophils (%) (Auto) 55.2 % (45.0-75.0) Lymphocytes (%) (Auto) 27.0 % (20.0-45.0) Monocytes (%) (Auto) 14.9 % (1.0-10.0) H Eosinophils (%) (Auto) 2.0 % (0.0-3.0) Basophils (%) (Auto) 0.9 % (0.0-2.0) Sodium Level 139 mEQ/L (135-145) Potassium Level 3.6 mEQ/L (3.4-4.9) Chloride Level 101 mEQ/L (98-107) Carbon Dioxide Level 23 mEQ/L (20-30) Anion Gap 15 (5-15) Blood Urea Nitrogen 18 mg/dL (7-23) Creatinine 1.2 mg/dL (0.7-1.2) Estimat Glomerular Filtration Rate mL/min (>60) Glucose Level 135 mg/dL (74-106) H Calcium Level 8.8 mg/dL (8.6-10.2) Pro-B-Type Natriuretic Peptide 635 pg/mL (0-125) H Prostate Specific Antigen 1.9 ng/mL (< 4.5) Free Prostate Specific Antigen Pending Percent Free Prostate Specific Ag Pending Prostate Specific Antigen Total Pending Thyroid Stimulating Hormone (TSH) 4.100 uIU/mL (0.300-4.500) Microbiology Date/Time Source Procedure Growth Status 06/04/16 23:25 Blood Blood Culture - Preliminary NO GROWTH AFTER 24 HOURS Resulted 06/04/16 23:10 Blood Blood Culture - Preliminary NO GROWTH AFTER 24 HOURS Resulted 06/06/16 00:35 Nasopharynx Influenza Types A,B Antigen (DELL) - Final Complete 06/05/16 07:25 Sputum Gram Stain - Final Resulted 06/05/16 07:25 Sputum Sputum Culture Pending Resulted 06/06/16 00:35 Stool Clostridium difficile Toxin Assay - Final Complete 06/04/16 22:08 Indwelling Cath Urine Culture - Preliminary NO GROWTH AFTER 24 HOURS Resulted ABHISHEK RODRIGUEZ Jun 06, 2016 17:23
[2016-06-06 20:00] VITALS: BP 141/76
--- NOTE | 2016-06-06 20:49 | Pulmonology Progress Note ---
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 Subjective ROS Limited/Unobtainable: Yes ROS Limited/Unobtainable: No Constitutional: Reports: anorexia, chills, fatigue, fever Respiratory: Reports: dyspnea at rest, dyspnea on exertion, pleuritic pain, productive cough, shortness of breath, sputum, wheezing Allergies: Coded Allergies: No Known Allergies (Unverified , 06/04/16) Objective Last 24 Hour Vital Signs Date Time Temp Pulse Resp B/P Pulse Ox O2 Delivery O2 Flow Rate FiO2 06/06/16 20:38 56 18 Room Air 21 06/06/16 16:00 98.1 55 18 145/62 95 Room Air 06/06/16 11:40 98.2 64 16 122/65 96 Room Air 06/06/16 08:00 98.9 69 20 118/62 96 Room Air 06/06/16 07:58 60 18 Room Air 21 06/06/16 04:00 98.4 59 18 126/51 96 Room Air 06/06/16 00:00 98.4 60 18 129/52 95 Room Air 06/06/16 00:00 98.4 Intake and Output 06/05/16 06/06/16 19:00 07:00 Intake Total 630 ml 350 ml Output Total 2500 ml Balance 630 ml -2150 ml Intake Oral 480 ml 350 ml IV Total 150 ml Output Urine Total 2500 ml # Bowel Movements 4 3 General Appearance: no acute distress HEENT: normocephalic, atraumatic, PERRL Respiratory/Chest: chest wall non-tender, decreased breath sounds, accessory muscle use, crackles/rales, rhonchi, expiratory wheezing, pleural rub Cardiovascular: normal peripheral pulses, normal rate, regular rhythm, no JVD Abdomen: normal bowel sounds, soft, non tender, no organomegaly, non distended Genitourinary: normal external genitalia Extremities: no cyanosis Skin: no rash, lesions Neurologic/Psychiatric: blasting helper II-XII grossly normal, no motor/sensory deficits Microbiology Date/Time Source Procedure Growth Status 06/04/16 23:25 Blood Blood Culture - Preliminary NO GROWTH AFTER 24 HOURS Resulted 06/04/16 23:10 Blood Blood Culture - Preliminary NO GROWTH AFTER 24 HOURS Resulted 06/06/16 00:35 Nasopharynx Influenza Types A,B Antigen (DELL) - Final Complete 06/05/16 07:25 Sputum Gram Stain - Final Resulted 06/05/16 07:25 Sputum Sputum Culture Pending Resulted 06/06/16 00:35 Stool Clostridium difficile Toxin Assay - Final Complete 06/04/16 22:08 Indwelling Cath Urine Culture - Preliminary NO GROWTH AFTER 24 HOURS Resulted Laboratory Tests 06/06/16 03:25: White Blood Count 4.1#L, Red Blood Count 3.61L, Hemoglobin 11.4L, Hematocrit 33.9L, Mean Corpuscular Volume 94, Mean Corpuscular Hemoglobin 31.5H, Mean Corpuscular Hemoglobin Concent 33.5, Red Cell Distribution Width 12.7, Platelet Count 120L, Mean Platelet Volume 9.8, Neutrophils (%) (Auto) 55.2, Lymphocytes ( %) (Auto) 27.0, Monocytes (%) (Auto) 14.9H, Eosinophils (%) (Auto) 2.0, Basophils (%) (Auto) 0.9, Sodium Level 139, Potassium Level 3.6, Chloride Level 101, Carbon Dioxide Level 23, Anion Gap 15, Blood Urea Nitrogen 18, Creatinine 1.2, Estimat Glomerular Filtration Rate , Glucose Level 135H, Calcium Level 8.8 , Pro-B-Type Natriuretic Peptide 635H, Prostate Specific Antigen 1.9, Free Prostate Specific Antigen [Pending], Percent Free Prostate Specific Ag [Pending] , Prostate Specific Antigen Total [Pending], Thyroid Stimulating Hormone (TSH) 4.100 Current Medications Medications (Trade) Dose Ordered Sig/Bradley Route PRN Reason Start Time Stop Time Status Last Admin Dose Admin Acetaminophen (Tylenol) 650 mg Q4H PRN ORAL fever 06/04/16 22:45 07/04/16 22:44 06/05/16 22:44 Albuterol/ Ipratropium (DuoNeb 0.5-3(2.5)mg/3ml) 3 ml EVERY 4 HOURS PRN HHN Shortness of Breath 06/04/16 22:45 06/09/16 22:44 Furosemide 20 mg 20 mg DAILY IV 06/05/16 17:30 07/05/16 17:29 06/06/16 09:09 Heparin Sodium (Porcine) (Heparin 5000 units/ml) 5,000 units EVERY 12 HOURS SUBQ 3/7/17 09:00 07/05/16 08:59 06/05/16 10:20 Levofloxacin 150 ml @ 100 mls/hr Q24H IVPB 06/06/16 18:00 06/12/16 17:59 06/06/16 18:00 Morphine Sulfate (Morphine Sulfate) 2 mg EVERY 4 HOURS PRN IVP Moderate Pain (Pain Scale 4-6) 06/04/16 22:45 06/11/16 22:44 Nitroglycerin (Ntg) 0.4 mg Q 5 MINPRN PRN SL Prn Chest Pain 06/04/16 22:45 07/04/16 22:44 Ondansetron HCl (Zofran) 4 mg Q6H PRN IVP Nausea & Vomiting 06/04/16 22:45 07/04/16 22:44 Polyethylene Glycol (Miralax) 17 gm DAILYPRN PRN ORAL Constipation 06/04/16 22:45 07/04/16 22:44 Temazepam (Restoril) 15 mg HSPRN PRN ORAL Insomnia 06/04/16 22:45 06/11/16 22:44 Vancomycin HCl (Vanco rx to dose) 1 ea DAILY PRN MISC . 06/05/16 07:00 07/05/16 06:59 Vancomycin HCl/ Dextrose (Vancomycin/D5W) 325 ml @ 162.5 mls/ hr Q24H IVPB 06/07/16 02:00 06/09/16 01:59 TSERING TEJADA Jun 06, 2016 20:49
[2016-06-07] VITALS: BP 143/67
[2016-06-07] MEDS ORDERED: Vancomycin 1.5 GM in D5W 325 ML IVPB SCH (02:00)
--- NOTE | 2016-06-07 02:08 | Consultation ---
DATE OF CONSULTATION: 06/06/2016 CARDIOLOGY CONSULTATION REFERRING PHYSICIAN: Caleb Medrano M.D. REASON FOR CONSULTATION: Tachycardia. HISTORY OF PRESENT ILLNESS: The patient is a 71-year-old gentleman with history of hypertension, hyperlipidemia and seizure disorder as well as chronic obstructive pulmonary disease and hypothyroidism, who is usually followed up at the [facility], was brought from senior care facility for generalized weakness and fever. The patient was also found to be tachycardic with a heart rate of 112 beats per minute. Patient had 12-lead EKG. Cardiology consultation was obtained for further evaluation. At the time of my evaluation, the patient denies any chest pain or palpitation. He underwent an echocardiogram also that showed ejection fraction of 60% to 65% with no evidence of pericardial effusion. PAST MEDICAL HISTORY: 1. Hypertension. 2. Hyperlipidemia. 3. Chronic obstructive pulmonary disease. 4. Hypertension. 5. Depression. 6. Dementia. 7. Seizure disorder. ALLERGIES: He has no known drug allergies. SOCIAL HISTORY: He lives in [facility]. He does not smoke or drink alcohol. REVIEW OF SYSTEMS: Review of systems was performed and was negative other than what was mentioned in the history of present illness. PHYSICAL EXAMINATION: VITAL SIGNS: Show blood pressure of 112/62, pulse 90 to 100s, respirations 20, and maximum temperature is 103.4 degrees, currently 98.2 degrees. HEAD AND NECK: Shows no JVD. LUNGS: Coarse rhonchi. CARDIOVASCULAR: Shows regular S1 and S2 with no gallop or murmur. Tachycardic. ABDOMEN: Soft. EXTREMITIES: No pitting edema. LABORATORY DATA: White count of 4.1, hemoglobin 11.4, hematocrit 32.9, and platelet count of 120,000. Sodium 139, potassium 3.6, BUN 18, creatinine 1.2, and glucose of 135. INR is 1.34. ASSESSMENT AND PLAN: 1. Tachycardia. This tachycardia is due to sinus tachycardia with the patient's sepsis. The heart rate is better. Continue antibiotics. There is no evidence of atrial fibrillation. His echocardiogram showed normal ejection fraction of 60% to 65%. 2. Hypertension. Currently only on Lasix 20 mg intravenous daily that we will switch to by mouth. 3. Sepsis, on vancomycin per Dr. Bynum. Thank you very much, Dr. Medrano, for allowing me to participate in the care of this patient. Please do not hesitate to contact me for any questions regarding my evaluation. Gonzalez Romero M.D. DR: KISHA JOB#: [id number] CC:
[2016-06-07 04:00] VITALS: BP 130/76
[2016-06-07 05:15] LABS: BASOPHILS % (AUTO) 0.8 % (0.0-2.0); EOSINOPHILS % (AUTO) 3.8 % (0.0-3.0); LYMPHOCYTES % (AUTO) 36.8 % (20.0-45.0); MEAN CORPUSCULAR HEMOGLOBIN 31.7 PG (27.0-31.0); MEAN CORPUSCULAR VOLUME 93 FL (80-99); MEAN PLATELET VOLUME 11.8 FL (6.5-10.1); NEUTROPHILS % (AUTO) 41.6 % (45.0-75.0); PLATELET COUNT 175 K/UL (150-450); RED BLOOD COUNT 3.82 M/UL (4.70-6.10); RED CELL DISTRIBUTION WIDTH 12.5 % (11.6-14.8); WHITE BLOOD COUNT 4.1 K/UL (4.8-10.8)
[2016-06-07 05:59] LABS: ANION GAP 18 (5-15); CALCIUM 9.1 mg/dL (8.6-10.2); CARBON DIOXIDE 23 mEQ/L (20-30); CHLORIDE 103 mEQ/L (98-107); CREATININE 1.1 mg/dL (0.7-1.2); HEMOLYSIS 167; POTASSIUM 4.3 mEQ/L (3.4-4.9); SODIUM 144 mEQ/L (135-145)
[2016-06-07 08:00] VITALS: BP 140/66
[2016-06-07] MEDS: Heparin 5000 units/ml inj SUBQ SCH ×3 (08:11→21:00)
[2016-06-07 08:12] LABS: PSA FREE 0.19 ng/mL; PSA TOTAL 1.9 ng/mL (0.0-4.0)
[2016-06-07 12:00] VITALS: BP 141/60
[2016-06-07 16:00] VITALS: BP 149/62
--- NOTE | 2016-06-07 17:27 | Cardiac Electrophysiology PN ---
Assessment/Plan Assessment/Plan 1. Tachycardia due to sinus tachycardia due to sepsis. The heart rate is better. Continue antibiotics. There is no evidence of atrial fibrillation. His echocardiogram showed normal ejection fraction of 60% to 65%. 2. Hypertension. DC iv lasix 3. Sepsis, on vancomycin per Dr. Bynum. Subjective Subjective No events overnight. Transferred to nonmonitored bed. Objective Last 24 Hour Vital Signs Date Time Temp Pulse Resp B/P Pulse Ox O2 Delivery O2 Flow Rate FiO2 06/07/16 16:00 99.0 48 20 149/62 97 Room Air 06/07/16 12:00 98.8 57 20 141/60 97 Room Air 06/07/16 08:27 65 14 Room Air 21 06/07/16 08:00 97.7 65 18 140/66 97 Room Air 06/07/16 04:00 98.3 53 18 130/76 97 Room Air 06/07/16 00:00 98.2 51 18 143/67 97 Room Air 06/06/16 20:38 56 18 Room Air 21 06/06/16 20:00 98.2 59 20 141/76 98 Room Air Intake and Output 06/06/16 06/07/16 19:00 07:00 Intake Total 460 ml 875.0 ml Output Total 1400 ml 200 ml Balance -940 ml 675.0 ml Intake Oral 360 ml 500 ml IV Total 100 ml 375.0 ml Output Urine Total 1400 ml 200 ml # Bowel Movements 1 2 Laboratory Tests Test 06/07/16 03:15 White Blood Count 4.1 K/UL (4.8-10.8) L Red Blood Count 3.82 M/UL (4.70-6.10) L Hemoglobin 12.1 G/DL (14.2-18.0) L Hematocrit 35.6 % (42.0-52.0) L Mean Corpuscular Volume 93 FL (80-99) Mean Corpuscular Hemoglobin 31.7 PG (27.0-31.0) H Mean Corpuscular Hemoglobin Concent 34.0 G/DL (32.0-36.0) Red Cell Distribution Width 12.5 % (11.6-14.8) Platelet Count 175 K/UL (150-450) Mean Platelet Volume 11.8 FL (6.5-10.1) H Neutrophils (%) (Auto) 41.6 % (45.0-75.0) L Lymphocytes (%) (Auto) 36.8 % (20.0-45.0) Monocytes (%) (Auto) 17.0 % (1.0-10.0) H Eosinophils (%) (Auto) 3.8 % (0.0-3.0) H Basophils (%) (Auto) 0.8 % (0.0-2.0) Sodium Level 144 mEQ/L (135-145) Potassium Level 4.3 mEQ/L (3.4-4.9) Chloride Level 103 mEQ/L (98-107) Carbon Dioxide Level 23 mEQ/L (20-30) Anion Gap 18 (5-15) H Blood Urea Nitrogen 17 mg/dL (7-23) Creatinine 1.1 mg/dL (0.7-1.2) Estimat Glomerular Filtration Rate mL/min (>60) Glucose Level 112 mg/dL (74-106) H Calcium Level 9.1 mg/dL (8.6-10.2) Pro-B-Type Natriuretic Peptide 598 pg/mL (0-125) H Microbiology Date/Time Source Procedure Growth Status 06/04/16 23:25 Blood Blood Culture - Preliminary NO GROWTH AFTER 48 HOURS Resulted 06/04/16 23:10 Blood Blood Culture - Preliminary NO GROWTH AFTER 48 HOURS Resulted 06/06/16 00:35 Nasopharynx Influenza Types A,B Antigen (DELL) - Final Complete 06/05/16 07:25 Sputum Gram Stain - Final Complete 06/05/16 07:25 Sputum Sputum Culture - Final Complete 06/05/16 00:00 Nasal Nares MRSA Culture - Final NO METHICILLIN RESISTANT STAPH AUREUS... Complete 06/06/16 00:35 Stool Clostridium difficile Toxin Assay - Final Complete 06/04/16 22:08 Indwelling Cath Urine Culture - Final NO GROWTH AFTER 48 HOURS Complete 06/05/16 00:00 Rectum VRE Culture - Final NO VANCOMYCIN RESISTANT ENTEROCOCCUS ... Complete Objective HEAD AND NECK: Shows no JVD. LUNGS: Coarse rhonchi. CARDIOVASCULAR: Shows regular S1 and S2 with no gallop or murmur. Tachycardic. ABDOMEN: Soft. EXTREMITIES: No pitting edema. ABHISHEK RODRIGUEZ Jun 07, 2016 17:27
--- NOTE | 2016-06-07 17:52 | Internal Med Progress Note ---
Subjective Date of Service: Jun 07, 2016 Physician Name Facundo Calzada Attending Physician Caleb Medrano MD Current Medications Medications (Trade) Dose Ordered Sig/Bradley Route PRN Reason Start Time Stop Time Status Last Admin Dose Admin Acetaminophen (Tylenol) 650 mg Q4H PRN ORAL fever 06/04/16 22:45 07/04/16 22:44 06/05/16 22:44 Albuterol/ Ipratropium (DuoNeb 0.5-3(2.5)mg/3ml) 3 ml EVERY 4 HOURS PRN HHN Shortness of Breath 06/04/16 22:45 06/09/16 22:44 Heparin Sodium (Porcine) (Heparin 5000 units/ml) 5,000 units EVERY 12 HOURS SUBQ 06/05/16 09:00 07/05/16 08:59 06/05/16 10:20 Levofloxacin 150 ml @ 100 mls/hr Q24H IVPB 06/06/16 18:00 06/12/16 17:59 06/06/16 18:00 Morphine Sulfate (Morphine Sulfate) 2 mg EVERY 4 HOURS PRN IVP Moderate Pain (Pain Scale 4-6) 06/04/16 22:45 06/11/16 22:44 Nitroglycerin (Ntg) 0.4 mg Q 5 MINPRN PRN SL Prn Chest Pain 06/04/16 22:45 07/04/16 22:44 Ondansetron HCl (Zofran) 4 mg Q6H PRN IVP Nausea & Vomiting 06/04/16 22:45 07/04/16 22:44 Polyethylene Glycol (Miralax) 17 gm DAILYPRN PRN ORAL Constipation 06/04/16 22:45 07/04/16 22:44 Temazepam (Restoril) 15 mg HSPRN PRN ORAL Insomnia 06/04/16 22:45 06/11/16 22:44 Vancomycin HCl 1 ea 1 ea DAILY PRN MISC . 06/05/16 07:00 07/05/16 06:59 Vancomycin HCl/ Dextrose (Vancomycin/D5W) 325 ml @ 162.5 mls/ hr Q24H IVPB 06/07/16 02:00 06/09/16 01:59 06/07/16 02:32 Allergies: Coded Allergies: No Known Allergies (Unverified , 06/04/16) ROS Limited/Unobtainable: No Constitutional: Reports: chills, fever HEENT: Reports: no symptoms Cardiovascular: Reports: no symptoms Respiratory: Reports: no symptoms Gastrointestinal/Abdominal: Reports: no symptoms Genitourinary: Reports: no symptoms Neurologic/Psychiatric: Reports: no symptoms Subjective 71 YO M admitted with fever, now gary heart failure. Cover for Int Cj-Dr Medrano Objective Last Vital Signs Date Time Temp Pulse Resp B/P Pulse Ox O2 Delivery O2 Flow Rate FiO2 06/07/16 16:00 99.0 48 20 149/62 97 Room Air 06/07/16 08:27 21 Laboratory Tests Test 06/07/16 03:15 White Blood Count 4.1 K/UL (4.8-10.8) L Red Blood Count 3.82 M/UL (4.70-6.10) L Hemoglobin 12.1 G/DL (14.2-18.0) L Hematocrit 35.6 % (42.0-52.0) L Mean Corpuscular Volume 93 FL (80-99) Mean Corpuscular Hemoglobin 31.7 PG (27.0-31.0) H Mean Corpuscular Hemoglobin Concent 34.0 G/DL (32.0-36.0) Red Cell Distribution Width 12.5 % (11.6-14.8) Platelet Count 175 K/UL (150-450) Mean Platelet Volume 11.8 FL (6.5-10.1) H Neutrophils (%) (Auto) 41.6 % (45.0-75.0) L Lymphocytes (%) (Auto) 36.8 % (20.0-45.0) Monocytes (%) (Auto) 17.0 % (1.0-10.0) H Eosinophils (%) (Auto) 3.8 % (0.0-3.0) H Basophils (%) (Auto) 0.8 % (0.0-2.0) Sodium Level 144 mEQ/L (135-145) Potassium Level 4.3 mEQ/L (3.4-4.9) Chloride Level 103 mEQ/L (98-107) Carbon Dioxide Level 23 mEQ/L (20-30) Anion Gap 18 (5-15) H Blood Urea Nitrogen 17 mg/dL (7-23) Creatinine 1.1 mg/dL (0.7-1.2) Estimat Glomerular Filtration Rate mL/min (>60) Glucose Level 112 mg/dL (74-106) H Calcium Level 9.1 mg/dL (8.6-10.2) Pro-B-Type Natriuretic Peptide 598 pg/mL (0-125) H Microbiology Date/Time Source Procedure Growth Status 06/04/16 23:25 Blood Blood Culture - Preliminary NO GROWTH AFTER 48 HOURS Resulted 06/04/16 23:10 Blood Blood Culture - Preliminary NO GROWTH AFTER 48 HOURS Resulted 06/06/16 00:35 Nasopharynx Influenza Types A,B Antigen (DELL) - Final Complete 06/05/16 07:25 Sputum Gram Stain - Final Complete 06/05/16 07:25 Sputum Sputum Culture - Final Complete 06/05/16 00:00 Nasal Nares MRSA Culture - Final NO METHICILLIN RESISTANT STAPH AUREUS... Complete 06/06/16 00:35 Stool Clostridium difficile Toxin Assay - Final Complete 06/04/16 22:08 Indwelling Cath Urine Culture - Final NO GROWTH AFTER 48 HOURS Complete 06/05/16 00:00 Rectum VRE Culture - Final NO VANCOMYCIN RESISTANT ENTEROCOCCUS ... Complete Intake and Output 06/06/16 06/07/16 19:00 07:00 Intake Total 460 ml 875.0 ml Output Total 1400 ml 200 ml Balance -940 ml 675.0 ml Intake Oral 360 ml 500 ml IV Total 100 ml 375.0 ml Output Urine Total 1400 ml 200 ml # Bowel Movements 1 2 Objective General Appearance: WD/WN, no apparent distress, alert EENT: PERRL/EOMI, normal ENT inspection, TMs normal Neck: non-tender, normal alignment, supple Cardiovascular: normal peripheral pulses, normal rate, regular rhythm, no gallop/murmur, no JVD Respiratory/Chest: crackles/rales, rhonchi - bilaterally, expiratory wheezing Abdomen: normal bowel sounds, non tender, soft, no organomegaly, no mass Extremities: normal range of motion 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 Await culture results. Cont vanco and levaquim per ID (2) Congestive heart failure Assessment & Plan: See cardiology consult. LVEF = 60-65% (3) Cardiomegaly (4) HTN (hypertension) (5) Cerebral vascular disease (6) Hypothyroidism Assessment & Plan: TSH normal. (7) Hypercholesteremia (8) Prostate cancer Assessment & Plan: Await PSA result. Assessment/Plan Discharge planning: FACUNDO Dye Jun 07, 2016 17:52
[2016-06-07 20:00] VITALS: BP 139/77
--- NOTE | 2016-06-07 22:31 | Pulmonology Progress Note ---
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 Subjective ROS Limited/Unobtainable: No Constitutional: Reports: anorexia, chills, fatigue, fever Respiratory: Reports: dyspnea at rest, dyspnea on exertion, pleuritic pain, productive cough, shortness of breath, sputum, wheezing Allergies: Coded Allergies: No Known Allergies (Unverified , 06/04/16) Objective Last 24 Hour Vital Signs Date Time Temp Pulse Resp B/P Pulse Ox O2 Delivery O2 Flow Rate FiO2 06/07/16 20:00 98.2 55 20 139/77 96 Room Air 06/07/16 19:41 63 14 Room Air 21 06/07/16 16:00 99.0 48 20 149/62 97 Room Air 06/07/16 12:00 98.8 57 20 141/60 97 Room Air 06/07/16 08:27 65 14 Room Air 21 06/07/16 08:00 97.7 65 18 140/66 97 Room Air 06/07/16 04:00 98.3 53 18 130/76 97 Room Air 06/07/16 00:00 98.2 51 18 143/67 97 Room Air Intake and Output 06/06/16 06/07/16 19:00 07:00 Intake Total 460 ml 875.0 ml Output Total 1400 ml 200 ml Balance -940 ml 675.0 ml Intake Oral 360 ml 500 ml IV Total 100 ml 375.0 ml Output Urine Total 1400 ml 200 ml # Bowel Movements 1 2 General Appearance: no acute distress HEENT: normocephalic, atraumatic, PERRL Respiratory/Chest: chest wall non-tender, decreased breath sounds, accessory muscle use, rhonchi, pleural rub Cardiovascular: normal peripheral pulses, normal rate, regular rhythm, no JVD Abdomen: normal bowel sounds, soft, non tender, no organomegaly, non distended Genitourinary: normal external genitalia Extremities: no cyanosis 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 Complete 06/06/16 00:35 Stool Clostridium difficile Toxin Assay - Final Complete 06/05/16 00:00 Rectum VRE Culture - Final NO VANCOMYCIN RESISTANT ENTEROCOCCUS ... Complete Laboratory Tests 06/07/16 03:15: White Blood Count 4.1L, Red Blood Count 3.82L, Hemoglobin 12.1L, Hematocrit 35.6L, Mean Corpuscular Volume 93, Mean Corpuscular Hemoglobin 31.7H, Mean Corpuscular Hemoglobin Concent 34.0, Red Cell Distribution Width 12.5, Platelet Count 175, Mean Platelet Volume 11.8H, Neutrophils (%) (Auto) 41.6L, Lymphocytes (%) (Auto) 36.8, Monocytes (%) (Auto) 17.0H, Eosinophils (%) (Auto) 3.8H, Basophils (%) (Auto) 0.8, Sodium Level 144, Potassium Level 4.3, Chloride Level 103, Carbon Dioxide Level 23, Anion Gap 18H, Blood Urea Nitrogen 17, Creatinine 1.1, Estimat Glomerular Filtration Rate , Glucose Level 112H, Calcium Level 9.1, Pro-B-Type Natriuretic Peptide 598H Current Medications Medications (Trade) Dose Ordered Sig/Bradley Route PRN Reason Start Time Stop Time Status Last Admin Dose Admin Acetaminophen (Tylenol) 650 mg Q4H PRN ORAL fever 06/04/16 22:45 07/04/16 22:44 06/05/16 22:44 Albuterol/ Ipratropium (DuoNeb 0.5-3(2.5)mg/3ml) 3 ml EVERY 4 HOURS PRN HHN Shortness of Breath 06/04/16 22:45 06/09/16 22:44 Heparin Sodium (Porcine) (Heparin 5000 units/ml) 5,000 units EVERY 12 HOURS SUBQ 06/05/16 09:00 07/05/16 08:59 06/05/16 10:20 Levofloxacin 150 ml @ 100 mls/hr Q24H IVPB 06/06/16 18:00 06/12/16 17:59 06/07/16 18:42 Morphine Sulfate (Morphine Sulfate) 2 mg EVERY 4 HOURS PRN IVP Moderate Pain (Pain Scale 4-6) 06/04/16 22:45 06/11/16 22:44 Nitroglycerin (Ntg) 0.4 mg Q 5 MINPRN PRN SL Prn Chest Pain 06/04/16 22:45 07/04/16 22:44 Ondansetron HCl (Zofran) 4 mg Q6H PRN IVP Nausea & Vomiting 06/04/16 22:45 07/04/16 22:44 Polyethylene Glycol (Miralax) 17 gm DAILYPRN PRN ORAL Constipation 06/04/16 22:45 07/04/16 22:44 Temazepam (Restoril) 15 mg HSPRN PRN ORAL Insomnia 06/04/16 22:45 06/11/16 22:44 Vancomycin HCl 1 ea 1 ea DAILY PRN MISC . 06/05/16 07:00 07/05/16 06:59 Vancomycin HCl/ Dextrose (Vancomycin/D5W) 325 ml @ 162.5 mls/ hr Q24H IVPB 06/07/16 02:00 06/09/16 01:59 06/07/16 02:32 TSERING TEJADA Jun 07, 2016 22:31
[2016-06-08] VITALS (7 sets, daily range): BP systolic 121–177; BP diastolic 54–68
[2016-06-08 02:04] LABS: BASOPHILS % (AUTO) 0.7 % (0.0-2.0); EOSINOPHILS % (AUTO) 3.8 % (0.0-3.0); LYMPHOCYTES % (AUTO) 35.4 % (20.0-45.0); MEAN CORPUSCULAR HEMOGLOBIN 30.7 PG (27.0-31.0); MEAN CORPUSCULAR HGB CONC 33.1 G/DL (32.0-36.0); MEAN CORPUSCULAR VOLUME 93 FL (80-99); MEAN PLATELET VOLUME 7.9 FL (6.5-10.1); MONOCYTES % (AUTO) 15.1 % (1.0-10.0); NEUTROPHILS % (AUTO) 45.1 % (45.0-75.0); PLATELET COUNT 154 K/UL (150-450); RED BLOOD COUNT 3.98 M/UL (4.70-6.10); RED CELL DISTRIBUTION WIDTH 12.6 % (11.6-14.8); WHITE BLOOD COUNT 4.8 K/UL (4.8-10.8)
[2016-06-08 02:20] LABS: ANION GAP 17 (5-15); CARBON DIOXIDE 24 mEQ/L (20-30); CHLORIDE 103 mEQ/L (98-107); CREATININE 1.1 mg/dL (0.7-1.2); HEMOLYSIS 4; POTASSIUM 3.3 mEQ/L (3.4-4.9); SODIUM 144 mEQ/L (135-145)
[2016-06-08] MEDS ORDERED: Vancomycin 1gm inj IVPB ONE (02:59)
[2016-06-08] MEDS: Vancomycin 1gm/D5W 275ml IVPB SCH ×4 (03:10→15:01)
[2016-06-08] MEDS: Heparin 5000 units/ml inj SUBQ SCH ×3 (08:11→20:09)
--- NOTE | 2016-06-08 10:19 | Infectious Diseases Prog Note ---
Assessment/Plan Assessment/Plan A: The patient is a 71-year-old male with Sepsis, SP Fever SP CT: focal dilation of the colon, Diverticulosis Chest x-ray, NAPD. Flu neg C Diff : Neg Dementia. Seizure disorder. Hyperlipidemia. Hypertension. Pneumonia. Obstructive sleep apnea. Diverticulosis. Osteoarthritis. Hypothyroidism. Depression. PLAN: cont pt on vancomycin , Levaquin d# 4 / 5 Monitor CBC. Monitor BMP. Monitor cultures (blood, ). Monitor chest x-ray Subjective Constitutional: Denies: anorexia, chills, drenching sweats, fatigue, fever, no symptoms, other Allergies: Coded Allergies: No Known Allergies (Unverified , 06/04/16) Objective Vital Signs Last 24 Hour Vital Signs Date Time Temp Pulse Resp B/P Pulse Ox O2 Delivery O2 Flow Rate FiO2 06/08/16 08:23 98.2 47 19 177/63 95 Room Air 06/08/16 08:05 55 14 Room Air 21 06/08/16 04:00 98.2 53 18 153/55 98 Room Air 06/08/16 00:00 98.1 54 20 149/67 96 Room Air 06/07/16 20:00 98.2 55 20 139/77 96 Room Air 06/07/16 19:41 63 14 Room Air 21 06/07/16 16:00 99.0 48 20 149/62 97 Room Air 06/07/16 12:00 98.8 57 20 141/60 97 Room Air Height (Feet): 5 Height (Inches): 9.00 Weight (Pounds): 180 HEENT: anicteric Respiratory/Chest: lungs clear Cardiovascular: normal rate Abdomen: no organomegaly Microbiology Date/Time Source Procedure Growth Status 06/06/16 00:35 Nasopharynx Influenza Types A,B Antigen (DELL) - Final Complete 06/06/16 00:35 Stool Clostridium difficile Toxin Assay - Final Complete Laboratory Tests Test 06/08/16 01:40 White Blood Count 4.8 K/UL (4.8-10.8) Red Blood Count 3.98 M/UL (4.70-6.10) L Hemoglobin 12.2 G/DL (14.2-18.0) L Hematocrit 36.9 % (42.0-52.0) L Mean Corpuscular Volume 93 FL (80-99) Mean Corpuscular Hemoglobin 30.7 PG (27.0-31.0) Mean Corpuscular Hemoglobin Concent 33.1 G/DL (32.0-36.0) Red Cell Distribution Width 12.6 % (11.6-14.8) Platelet Count 154 K/UL (150-450) Mean Platelet Volume 7.9 FL (6.5-10.1) Neutrophils (%) (Auto) 45.1 % (45.0-75.0) Lymphocytes (%) (Auto) 35.4 % (20.0-45.0) Monocytes (%) (Auto) 15.1 % (1.0-10.0) H Eosinophils (%) (Auto) 3.8 % (0.0-3.0) H Basophils (%) (Auto) 0.7 % (0.0-2.0) Sodium Level 144 mEQ/L (135-145) Potassium Level 3.3 mEQ/L (3.4-4.9) L Chloride Level 103 mEQ/L (98-107) Carbon Dioxide Level 24 mEQ/L (20-30) Anion Gap 17 (5-15) H Blood Urea Nitrogen 16 mg/dL (7-23) Creatinine 1.1 mg/dL (0.7-1.2) Estimat Glomerular Filtration Rate mL/min (>60) Glucose Level 117 mg/dL (74-106) H Calcium Level 9.0 mg/dL (8.6-10.2) Vancomycin Level Trough 8.8 ug/mL (5.0-12.0) Current Medications Medications (Trade) Dose Ordered Sig/Bradley Route PRN Reason Start Time Stop Time Status Last Admin Dose Admin Acetaminophen (Tylenol) 650 mg Q4H PRN ORAL fever 06/04/16 22:45 07/04/16 22:44 06/05/16 22:44 Albuterol/ Ipratropium (DuoNeb 0.5-3(2.5)mg/3ml) 3 ml EVERY 4 HOURS PRN HHN Shortness of Breath 06/04/16 22:45 06/09/16 22:44 Heparin Sodium (Porcine) (Heparin 5000 units/ml) 5,000 units EVERY 12 HOURS SUBQ 06/05/16 09:00 07/05/16 08:59 06/05/16 10:20 Levofloxacin 150 ml @ 100 mls/hr Q24H IVPB 06/06/16 18:00 06/12/16 17:59 06/07/16 18:42 Morphine Sulfate (Morphine Sulfate) 2 mg EVERY 4 HOURS PRN IVP Moderate Pain (Pain Scale 4-6) 06/04/16 22:45 06/11/16 22:44 Nitroglycerin (Ntg) 0.4 mg Q 5 MINPRN PRN SL Prn Chest Pain 06/04/16 22:45 07/04/16 22:44 Ondansetron HCl (Zofran) 4 mg Q6H PRN IVP Nausea & Vomiting 06/04/16 22:45 07/04/16 22:44 Polyethylene Glycol (Miralax) 17 gm DAILYPRN PRN ORAL Constipation 06/04/16 22:45 07/04/16 22:44 Temazepam (Restoril) 15 mg HSPRN PRN ORAL Insomnia 06/04/16 22:45 06/11/16 22:44 Vancomycin HCl 1 ea 1 ea DAILY PRN MISC . 06/05/16 07:00 07/05/16 06:59 Vancomycin HCl/ Dextrose (Vancomycin/D5W) 275 ml @ 183.708 mls/hr Q12H IVPB 06/08/16 03:00 06/13/16 02:59 06/08/16 03:10 JENNY GAMBLE M.D. Jun 08, 2016 10:19
--- NOTE | 2016-06-08 16:41 | Cardiac Electrophysiology PN ---
Assessment/Plan Assessment/Plan 1. Tachycardia due to sinus tachycardia due to sepsis.Better on antibiotics. There is no evidence of atrial fibrillation. His echocardiogram showed normal ejection fraction of 60% to 65%. 2. Hypertension. On Prn Clonidine 3. Sepsis, on vancomycin per Dr. Bynum. 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 Comfortable in NAD. Objective Last 24 Hour Vital Signs Date Time Temp Pulse Resp B/P Pulse Ox O2 Delivery O2 Flow Rate FiO2 06/08/16 14:00 97.7 67 18 121/68 96 Room Air 06/08/16 12:54 172/54 06/08/16 12:43 99.3 50 19 172/54 95 Room Air 06/08/16 08:23 98.2 47 19 177/63 95 Room Air 06/08/16 08:05 55 14 Room Air 21 06/08/16 04:00 98.2 53 18 153/55 98 Room Air 06/08/16 00:00 98.1 54 20 149/67 96 Room Air 06/07/16 20:00 98.2 55 20 139/77 96 Room Air 06/07/16 19:41 63 14 Room Air 21 Intake and Output 06/07/16 06/08/16 19:00 07:00 Intake Total 900 ml 545.000 ml Output Total 850 ml 550 ml Balance 50 ml -5.000 ml Intake Oral 900 ml 120 ml IV Total 425.000 ml Output Urine Total 850 ml 550 ml # Voids 1 # Bowel Movements 2 Laboratory Tests Test 06/08/16 01:40 White Blood Count 4.8 K/UL (4.8-10.8) Red Blood Count 3.98 M/UL (4.70-6.10) L Hemoglobin 12.2 G/DL (14.2-18.0) L Hematocrit 36.9 % (42.0-52.0) L Mean Corpuscular Volume 93 FL (80-99) Mean Corpuscular Hemoglobin 30.7 PG (27.0-31.0) Mean Corpuscular Hemoglobin Concent 33.1 G/DL (32.0-36.0) Red Cell Distribution Width 12.6 % (11.6-14.8) Platelet Count 154 K/UL (150-450) Mean Platelet Volume 7.9 FL (6.5-10.1) Neutrophils (%) (Auto) 45.1 % (45.0-75.0) Lymphocytes (%) (Auto) 35.4 % (20.0-45.0) Monocytes (%) (Auto) 15.1 % (1.0-10.0) H Eosinophils (%) (Auto) 3.8 % (0.0-3.0) H Basophils (%) (Auto) 0.7 % (0.0-2.0) Sodium Level 144 mEQ/L (135-145) Potassium Level 3.3 mEQ/L (3.4-4.9) L Chloride Level 103 mEQ/L (98-107) Carbon Dioxide Level 24 mEQ/L (20-30) Anion Gap 17 (5-15) H Blood Urea Nitrogen 16 mg/dL (7-23) Creatinine 1.1 mg/dL (0.7-1.2) Estimat Glomerular Filtration Rate mL/min (>60) Glucose Level 117 mg/dL (74-106) H Calcium Level 9.0 mg/dL (8.6-10.2) Vancomycin Level Trough 8.8 ug/mL (5.0-12.0) Microbiology Date/Time Source Procedure Growth Status 06/06/16 00:35 Nasopharynx Influenza Types A,B Antigen (DELL) - Final Complete 06/06/16 00:35 Stool Clostridium difficile Toxin Assay - Final Complete Objective HEAD AND NECK: Shows no JVD. LUNGS: Coarse rhonchi. CARDIOVASCULAR: Shows regular S1 and S2 with no gallop or murmur. Tachycardic. ABDOMEN: Soft. EXTREMITIES: No pitting edema. ABHISHEK RODRIGUEZ Jun 08, 2016 16:41
--- NOTE | 2016-06-08 20:00 | Internal Med Progress Note ---
Subjective Physician Name Caleb Medrano Attending Physician Caleb Medrano MD Current Medications Medications (Trade) Dose Ordered Sig/Bradley Route PRN Reason Start Time Stop Time Status Last Admin Dose Admin Acetaminophen (Tylenol) 650 mg Q4H PRN ORAL fever 06/04/16 22:45 07/04/16 22:44 06/05/16 22:44 Albuterol/ Ipratropium (DuoNeb 0.5-3(2.5)mg/3ml) 3 ml EVERY 4 HOURS PRN HHN Shortness of Breath 06/04/16 22:45 06/09/16 22:44 Clonidine HCl (Catapres) 0.1 mg Q4H PRN ORAL SBP>160 06/08/16 12:45 07/08/16 12:44 06/08/16 12:54 Heparin Sodium (Porcine) (Heparin 5000 units/ml) 5,000 units EVERY 12 HOURS SUBQ 06/05/16 09:00 07/05/16 08:59 06/05/16 10:20 Levofloxacin 150 ml @ 100 mls/hr Q24H IVPB 06/06/16 18:00 06/12/16 17:59 06/08/16 17:31 Morphine Sulfate (Morphine Sulfate) 2 mg EVERY 4 HOURS PRN IVP Moderate Pain (Pain Scale 4-6) 06/04/16 22:45 06/11/16 22:44 Nitroglycerin (Ntg) 0.4 mg Q 5 MINPRN PRN SL Prn Chest Pain 06/04/16 22:45 07/04/16 22:44 Ondansetron HCl (Zofran) 4 mg Q6H PRN IVP Nausea & Vomiting 06/04/16 22:45 07/04/16 22:44 Polyethylene Glycol (Miralax) 17 gm DAILYPRN PRN ORAL Constipation 06/04/16 22:45 07/04/16 22:44 Temazepam (Restoril) 15 mg HSPRN PRN ORAL Insomnia 06/04/16 22:45 06/11/16 22:44 Vancomycin HCl 1 ea 1 ea DAILY PRN MISC . 06/05/16 07:00 07/05/16 06:59 Vancomycin HCl/ Dextrose (Vancomycin/D5W) 275 ml @ 183.708 mls/hr Q12H IVPB 06/08/16 03:00 06/13/16 02:59 06/08/16 15:01 Allergies: Coded Allergies: No Known Allergies (Unverified , 06/04/16) Subjective awake, responsive, NAD, No CP or SOB Objective Last Vital Signs Date Time Temp Pulse Resp B/P Pulse Ox O2 Delivery O2 Flow Rate FiO2 06/08/16 19:08 54 18 Room Air 21 06/08/16 16:00 98.1 132/64 94 Laboratory Tests Test 06/08/16 01:40 White Blood Count 4.8 K/UL (4.8-10.8) Red Blood Count 3.98 M/UL (4.70-6.10) L Hemoglobin 12.2 G/DL (14.2-18.0) L Hematocrit 36.9 % (42.0-52.0) L Mean Corpuscular Volume 93 FL (80-99) Mean Corpuscular Hemoglobin 30.7 PG (27.0-31.0) Mean Corpuscular Hemoglobin Concent 33.1 G/DL (32.0-36.0) Red Cell Distribution Width 12.6 % (11.6-14.8) Platelet Count 154 K/UL (150-450) Mean Platelet Volume 7.9 FL (6.5-10.1) Neutrophils (%) (Auto) 45.1 % (45.0-75.0) Lymphocytes (%) (Auto) 35.4 % (20.0-45.0) Monocytes (%) (Auto) 15.1 % (1.0-10.0) H Eosinophils (%) (Auto) 3.8 % (0.0-3.0) H Basophils (%) (Auto) 0.7 % (0.0-2.0) Sodium Level 144 mEQ/L (135-145) Potassium Level 3.3 mEQ/L (3.4-4.9) L Chloride Level 103 mEQ/L (98-107) Carbon Dioxide Level 24 mEQ/L (20-30) Anion Gap 17 (5-15) H Blood Urea Nitrogen 16 mg/dL (7-23) Creatinine 1.1 mg/dL (0.7-1.2) Estimat Glomerular Filtration Rate mL/min (>60) Glucose Level 117 mg/dL (74-106) H Calcium Level 9.0 mg/dL (8.6-10.2) Vancomycin Level Trough 8.8 ug/mL (5.0-12.0) Microbiology Date/Time Source Procedure Growth Status 06/06/16 00:35 Nasopharynx Influenza Types A,B Antigen (DELL) - Final Complete 06/06/16 00:35 Stool Clostridium difficile Toxin Assay - Final Complete Intake and Output 06/07/16 06/08/16 19:00 07:00 Intake Total 900 ml 545.000 ml Output Total 850 ml 550 ml Balance 50 ml -5.000 ml Intake Oral 900 ml 120 ml IV Total 425.000 ml Output Urine Total 850 ml 550 ml # Voids 1 # Bowel Movements 2 Objective General Appearance: WD/WN, no apparent distress, alert EENT: PERRL/EOMI, normal ENT inspection, Neck: non-tender, normal alignment, supple Cardiovascular: normal peripheral pulses, normal rate, regular rhythm, no murmur Respiratory/Chest: No rales, rhonchi - No expiratory wheezing Abdomen: normal bowel sounds, non tender, soft,Obesity, [place] cath Extremities: normal range of motion 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 Seizure disorder. Hyperlipidemia. Obstructive sleep apnea. Diverticulosis. Osteoarthritis. Depression. Assessment/Plan Discharge planning: [facility] [place] [facility] DC All abx in AM prior discharge Caleb Medrano MD Jun 08, 2016 20:00
--- NOTE | 2016-06-08 23:34 | Pulmonology Progress Note ---
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 Subjective ROS Limited/Unobtainable: Yes Constitutional: Reports: anorexia, chills, fatigue, fever Respiratory: Reports: dyspnea at rest, dyspnea on exertion, pleuritic pain, productive cough, shortness of breath, sputum, wheezing Neurologic: Reports: confusion, weakness Allergies: Coded Allergies: No Known Allergies (Unverified , 06/04/16) Objective Last 24 Hour Vital Signs Date Time Temp Pulse Resp B/P Pulse Ox O2 Delivery O2 Flow Rate FiO2 06/08/16 20:00 97.9 50 18 150/58 98 Room Air 06/08/16 19:08 54 18 Room Air 21 06/08/16 16:00 98.1 50 18 132/64 94 Room Air 06/08/16 14:00 97.7 67 18 121/68 96 Room Air 06/08/16 12:54 172/54 06/08/16 12:43 99.3 50 19 172/54 95 Room Air 06/08/16 08:23 98.2 47 19 177/63 95 Room Air 06/08/16 08:05 55 14 Room Air 21 06/08/16 04:00 98.2 53 18 153/55 98 Room Air 06/08/16 00:00 98.1 54 20 149/67 96 Room Air Intake and Output 06/07/16 06/08/16 19:00 07:00 Intake Total 900 ml 545.000 ml Output Total 850 ml 550 ml Balance 50 ml -5.000 ml Intake Oral 900 ml 120 ml IV Total 425.000 ml Output Urine Total 850 ml 550 ml # Voids 1 # Bowel Movements 2 General Appearance: no acute distress HEENT: normocephalic, atraumatic, PERRL Respiratory/Chest: chest wall non-tender, decreased breath sounds, accessory muscle use, crackles/rales, rhonchi Cardiovascular: normal peripheral pulses, normal rate, regular rhythm, no JVD Abdomen: normal bowel sounds, soft, non tender, no organomegaly, non distended Genitourinary: normal external genitalia Extremities: no cyanosis Skin: rash, lesions 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 grossly normal, responsive, abnormal CN, motor weakness, disoriented Microbiology Date/Time Source Procedure Growth Status 06/06/16 00:35 Nasopharynx Influenza Types A,B Antigen (DELL) - Final Complete 06/06/16 00:35 Stool Clostridium difficile Toxin Assay - Final Complete Laboratory Tests 06/08/16 01:40: White Blood Count 4.8, Red Blood Count 3.98L, Hemoglobin 12.2L, Hematocrit 36.9L , Mean Corpuscular Volume 93, Mean Corpuscular Hemoglobin 30.7, Mean Corpuscular Hemoglobin Concent 33.1, Red Cell Distribution Width 12.6, Platelet Count 154, Mean Platelet Volume 7.9, Neutrophils (%) (Auto) 45.1, Lymphocytes (% ) (Auto) 35.4, Monocytes (%) (Auto) 15.1H, Eosinophils (%) (Auto) 3.8H, Basophils (%) (Auto) 0.7, Sodium Level 144, Potassium Level 3.3L, Chloride Level 103, Carbon Dioxide Level 24, Anion Gap 17H, Blood Urea Nitrogen 16, Creatinine 1.1, Estimat Glomerular Filtration Rate , Glucose Level 117H, Calcium Level 9.0, Vancomycin Level Trough 8.8 Current Medications Medications (Trade) Dose Ordered Sig/Bradley Route PRN Reason Start Time Stop Time Status Last Admin Dose Admin Acetaminophen (Tylenol) 650 mg Q4H PRN ORAL fever 06/04/16 22:45 07/04/16 22:44 06/05/16 22:44 Albuterol/ Ipratropium (DuoNeb 0.5-3(2.5)mg/3ml) 3 ml EVERY 4 HOURS PRN HHN Shortness of Breath 06/04/16 22:45 06/09/16 22:44 Clonidine HCl (Catapres) 0.1 mg Q4H PRN ORAL SBP>160 06/08/16 12:45 07/08/16 12:44 06/08/16 12:54 Heparin Sodium (Porcine) (Heparin 5000 units/ml) 5,000 units EVERY 12 HOURS SUBQ 06/05/16 09:00 07/05/16 08:59 06/05/16 10:20 Levofloxacin 150 ml @ 100 mls/hr Q24H IVPB 06/06/16 18:00 06/12/16 17:59 06/08/16 17:31 Morphine Sulfate (Morphine Sulfate) 2 mg EVERY 4 HOURS PRN IVP Moderate Pain (Pain Scale 4-6) 06/04/16 22:45 06/11/16 22:44 Nitroglycerin (Ntg) 0.4 mg Q 5 MINPRN PRN SL Prn Chest Pain 06/04/16 22:45 07/04/16 22:44 Ondansetron HCl (Zofran) 4 mg Q6H PRN IVP Nausea & Vomiting 06/04/16 22:45 07/04/16 22:44 Polyethylene Glycol (Miralax) 17 gm DAILYPRN PRN ORAL Constipation 06/04/16 22:45 07/04/16 22:44 Temazepam (Restoril) 15 mg HSPRN PRN ORAL Insomnia 06/04/16 22:45 06/11/16 22:44 Vancomycin HCl 1 ea 1 ea DAILY PRN MISC . 06/05/16 07:00 07/05/16 06:59 Vancomycin HCl/ Dextrose (Vancomycin/D5W) 275 ml @ 183.708 mls/hr Q12H IVPB 06/08/16 03:00 06/13/16 02:59 06/08/16 15:01 TSERING TEJADA Jun 08, 2016 23:34
[2016-06-09] VITALS: BP 151/62
[2016-06-09] MEDS: Vancomycin 1gm/D5W 275ml IVPB SCH ×2 (02:30)
[2016-06-09 04:00] VITALS: BP 143/56
[2016-06-09 07:27] LABS: BASOPHILS % (AUTO) 0.5 % (0.0-2.0); EOSINOPHILS % (AUTO) 4.8 % (0.0-3.0); LYMPHOCYTES % (AUTO) 36.8 % (20.0-45.0); MEAN CORPUSCULAR HEMOGLOBIN 31.2 PG (27.0-31.0); MEAN CORPUSCULAR HGB CONC 33.3 G/DL (32.0-36.0); MEAN CORPUSCULAR VOLUME 94 FL (80-99); MEAN PLATELET VOLUME 8.6 FL (6.5-10.1); MONOCYTES % (AUTO) 14.6 % (1.0-10.0); NEUTROPHILS % (AUTO) 43.4 % (45.0-75.0); PLATELET COUNT 159 K/UL (150-450); RED BLOOD COUNT 4.08 M/UL (4.70-6.10); RED CELL DISTRIBUTION WIDTH 12.5 % (11.6-14.8); WHITE BLOOD COUNT 6.8 K/UL (4.8-10.8)
[2016-06-09 07:32] LABS: ANION GAP 15 (5-15); CALCIUM 9.3 mg/dL (8.6-10.2); CARBON DIOXIDE 26 mEQ/L (20-30); CHLORIDE 100 mEQ/L (98-107); HEMOLYSIS 2; MAGNESIUM 2.1 mg/dL (1.7-2.5); PHOSPHORUS 2.4 mg/dL (2.5-4.8); POTASSIUM 3.4 mEQ/L (3.4-4.9); SODIUM 141 mEQ/L (135-145)
[2016-06-09 08:42] VITALS: BP 146/51
[2016-06-09] MEDS: Heparin 5000 units/ml inj SUBQ SCH ×2 (08:49→19:51)
[2016-06-09] MEDS ORDERED: Tubing IV Secondary IV ONE (10:52)
[2016-06-09] MEDS ORDERED: D5W 275ml ONE (10:52)
[2016-06-09] MEDS ORDERED: NS 275ml ONE (10:52)
[2016-06-09 12:45] VITALS: BP 149/55
--- NOTE | 2016-06-09 14:44 | Infectious Diseases Prog Note ---
Assessment/Plan Assessment/Plan A: The patient is a 71-year-old male with Sepsis, SP Fever SP CT: focal dilation of the colon, Diverticulosis Chest x-ray, NAPD. Flu neg C Diff : Neg Dementia. Seizure disorder. Hyperlipidemia. Hypertension. Pneumonia. Obstructive sleep apnea. Diverticulosis. Osteoarthritis. Hypothyroidism. Depression. PLAN: DC vancomycin , Levaquin d# 5 / 5 and monitor pt off of AB Rx Monitor CBC. Monitor BMP. Monitor cultures (blood, ). Monitor chest x-ray Subjective Constitutional: Denies: anorexia, chills, drenching sweats, fatigue, fever, no symptoms, other Allergies: Coded Allergies: No Known Allergies (Unverified , 06/04/16) Objective Vital Signs Last 24 Hour Vital Signs Date Time Temp Pulse Resp B/P Pulse Ox O2 Delivery O2 Flow Rate FiO2 06/09/16 12:45 98.6 51 19 149/55 97 Room Air 06/09/16 08:42 98.4 48 19 146/51 96 Room Air 06/09/16 06:57 55 18 Room Air 21 06/09/16 04:00 98.0 53 18 143/56 96 Room Air 06/09/16 00:00 98.1 55 18 151/62 95 Room Air 06/08/16 20:00 97.9 50 18 150/58 98 Room Air 06/08/16 19:08 54 18 Room Air 21 06/08/16 16:00 98.1 50 18 132/64 94 Room Air Height (Feet): 5 Height (Inches): 9.00 Weight (Pounds): 180 HEENT: anicteric Respiratory/Chest: normal breath sounds Cardiovascular: regular rhythm Abdomen: soft, non tender Laboratory Tests Test 06/09/16 05:15 White Blood Count 6.8 K/UL (4.8-10.8) Red Blood Count 4.08 M/UL (4.70-6.10) L Hemoglobin 12.7 G/DL (14.2-18.0) L Hematocrit 38.2 % (42.0-52.0) L Mean Corpuscular Volume 94 FL (80-99) Mean Corpuscular Hemoglobin 31.2 PG (27.0-31.0) H Mean Corpuscular Hemoglobin Concent 33.3 G/DL (32.0-36.0) Red Cell Distribution Width 12.5 % (11.6-14.8) Platelet Count 159 K/UL (150-450) Mean Platelet Volume 8.6 FL (6.5-10.1) Neutrophils (%) (Auto) 43.4 % (45.0-75.0) L Lymphocytes (%) (Auto) 36.8 % (20.0-45.0) Monocytes (%) (Auto) 14.6 % (1.0-10.0) H Eosinophils (%) (Auto) 4.8 % (0.0-3.0) H Basophils (%) (Auto) 0.5 % (0.0-2.0) Sodium Level 141 mEQ/L (135-145) Potassium Level 3.4 mEQ/L (3.4-4.9) Chloride Level 100 mEQ/L (98-107) Carbon Dioxide Level 26 mEQ/L (20-30) Anion Gap 15 (5-15) Blood Urea Nitrogen 14 mg/dL (7-23) Creatinine 1.0 mg/dL (0.7-1.2) Estimat Glomerular Filtration Rate mL/min (>60) Glucose Level 109 mg/dL (74-106) H Calcium Level 9.3 mg/dL (8.6-10.2) Phosphorus Level 2.4 mg/dL (2.5-4.8) L Magnesium Level 2.1 mg/dL (1.7-2.5) Current Medications Medications (Trade) Dose Ordered Sig/Bradley Route PRN Reason Start Time Stop Time Status Last Admin Dose Admin Acetaminophen (Tylenol) 650 mg Q4H PRN ORAL fever 06/04/16 22:45 07/04/16 22:44 06/05/16 22:44 Albuterol/ Ipratropium (DuoNeb 0.5-3(2.5)mg/3ml) 3 ml EVERY 4 HOURS PRN HHN Shortness of Breath 06/04/16 22:45 06/09/16 22:44 Clonidine HCl (Catapres) 0.1 mg Q4H PRN ORAL SBP>160 06/08/16 12:45 07/08/16 12:44 06/08/16 12:54 Heparin Sodium (Porcine) (Heparin 5000 units/ml) 5,000 units EVERY 12 HOURS SUBQ 06/05/16 09:00 07/05/16 08:59 06/05/16 10:20 Levofloxacin 150 ml @ 100 mls/hr Q24H IVPB 06/06/16 18:00 06/12/16 17:59 06/08/16 17:31 Morphine Sulfate (Morphine Sulfate) 2 mg EVERY 4 HOURS PRN IVP Moderate Pain (Pain Scale 4-6) 06/04/16 22:45 06/11/16 22:44 Nitroglycerin (Ntg) 0.4 mg Q 5 MINPRN PRN SL Prn Chest Pain 06/04/16 22:45 07/04/16 22:44 Ondansetron HCl (Zofran) 4 mg Q6H PRN IVP Nausea & Vomiting 06/04/16 22:45 07/04/16 22:44 Polyethylene Glycol (Miralax) 17 gm DAILYPRN PRN ORAL Constipation 06/04/16 22:45 07/04/16 22:44 Temazepam (Restoril) 15 mg HSPRN PRN ORAL Insomnia 06/04/16 22:45 06/11/16 22:44 Vancomycin HCl 1 ea 1 ea DAILY PRN MISC . 06/05/16 07:00 07/05/16 06:59 Vancomycin HCl/ Dextrose (Vancomycin/D5W) 275 ml @ 183.708 mls/hr Q12H IVPB 06/08/16 03:00 06/13/16 02:59 06/09/16 02:30 JENNY GAMBLE M.D. Jun 09, 2016 14:44
--- NOTE | 2016-06-09 14:51 | Internal Med Progress Note ---
Subjective Physician Name Caelb Medrano Attending Physician Caleb Medrano MD Current Medications Medications (Trade) Dose Ordered Sig/Bradley Route PRN Reason Start Time Stop Time Status Last Admin Dose Admin Acetaminophen (Tylenol) 650 mg Q4H PRN ORAL fever 06/04/16 22:45 07/04/16 22:44 06/05/16 22:44 Albuterol/ Ipratropium (DuoNeb 0.5-3(2.5)mg/3ml) 3 ml EVERY 4 HOURS PRN HHN Shortness of Breath 06/04/16 22:45 06/09/16 22:44 Clonidine HCl (Catapres) 0.1 mg Q4H PRN ORAL SBP>160 06/08/16 12:45 07/08/16 12:44 06/08/16 12:54 Heparin Sodium (Porcine) (Heparin 5000 units/ml) 5,000 units EVERY 12 HOURS SUBQ 06/05/16 09:00 07/05/16 08:59 06/05/16 10:20 Morphine Sulfate (Morphine Sulfate) 2 mg EVERY 4 HOURS PRN IVP Moderate Pain (Pain Scale 4-6) 06/04/16 22:45 06/11/16 22:44 Nitroglycerin (Ntg) 0.4 mg Q 5 MINPRN PRN SL Prn Chest Pain 06/04/16 22:45 07/04/16 22:44 Ondansetron HCl (Zofran) 4 mg Q6H PRN IVP Nausea & Vomiting 06/04/16 22:45 07/04/16 22:44 Polyethylene Glycol (Miralax) 17 gm DAILYPRN PRN ORAL Constipation 06/04/16 22:45 07/04/16 22:44 Temazepam (Restoril) 15 mg HSPRN PRN ORAL Insomnia 06/04/16 22:45 06/11/16 22:44 Allergies: Coded Allergies: No Known Allergies (Unverified , 06/04/16) Subjective awake, alert, responsive, NAD, No CP or SOB, NAD Objective Last Vital Signs Date Time Temp Pulse Resp B/P Pulse Ox O2 Delivery O2 Flow Rate FiO2 06/09/16 12:45 98.6 51 19 149/55 97 Room Air 06/09/16 06:57 21 Laboratory Tests Test 06/09/16 05:15 3/11/17 14:15 White Blood Count 6.8 K/UL (4.8-10.8) Red Blood Count 4.08 M/UL (4.70-6.10) L Hemoglobin 12.7 G/DL (14.2-18.0) L Hematocrit 38.2 % (42.0-52.0) L Mean Corpuscular Volume 94 FL (80-99) Mean Corpuscular Hemoglobin 31.2 PG (27.0-31.0) H Mean Corpuscular Hemoglobin Concent 33.3 G/DL (32.0-36.0) Red Cell Distribution Width 12.5 % (11.6-14.8) Platelet Count 159 K/UL (150-450) Mean Platelet Volume 8.6 FL (6.5-10.1) Neutrophils (%) (Auto) 43.4 % (45.0-75.0) L Lymphocytes (%) (Auto) 36.8 % (20.0-45.0) Monocytes (%) (Auto) 14.6 % (1.0-10.0) H Eosinophils (%) (Auto) 4.8 % (0.0-3.0) H Basophils (%) (Auto) 0.5 % (0.0-2.0) Sodium Level 141 mEQ/L (135-145) Potassium Level 3.4 mEQ/L (3.4-4.9) Chloride Level 100 mEQ/L (98-107) Carbon Dioxide Level 26 mEQ/L (20-30) Anion Gap 15 (5-15) Blood Urea Nitrogen 14 mg/dL (7-23) Creatinine 1.0 mg/dL (0.7-1.2) Estimat Glomerular Filtration Rate mL/min (>60) Glucose Level 109 mg/dL (74-106) H Calcium Level 9.3 mg/dL (8.6-10.2) Phosphorus Level 2.4 mg/dL (2.5-4.8) L Magnesium Level 2.1 mg/dL (1.7-2.5) Vancomycin Level Trough Pending Intake and Output 06/08/16 06/09/16 18:59 06:59 Intake Total 460 ml 580 ml Output Total 150 ml Balance 310 ml 580 ml Intake Oral 360 ml 480 ml IV Total 100 ml 100 ml Output Urine Total 150 ml # Voids 3 # Bowel Movements 2 Objective General Appearance: WD/WN, no apparent distress, alert EENT: PERRL/EOMI, normal ENT inspection, Neck: non-tender, normal alignment, supple Cardiovascular: normal peripheral pulses, normal rate, regular rhythm, no murmur Respiratory/Chest: No rales, rhonchi - No wheezing Abdomen: normal bowel sounds, non tender, soft,Obesity, DC [place]man cath Extremities: normal range of motion Neurologic: lathe tender II-XII grossly normal, no motor deficits Assessment/Plan Assessment/Plan (1) Fever Assessment & Plan: on vanco and levaquim per ID (2) Congestive heart failure Assessment & Plan: LVEF = 60-65% (3) Cardiomegaly (4) HTN (hypertension) (5) Cerebral vascular disease (6) Hypothyroidism (7) Hypercholesteremia (8) Prostate cancer Dementia. Seizure disorder. Hyperlipidemia. Obstructive sleep apnea. Diverticulosis. Osteoarthritis. Depression. Assessment/Plan Discharge planning: [facility] today DC [facility] Cath in morning DC All abx today Caleb Medrano MD Jun 09, 2016 14:50
--- NOTE | 2016-06-09 15:24 | Cardiac Electrophysiology PN ---
Assessment/Plan Assessment/Plan 1. Sinus Tachycardia due to sepsis.Better on antibiotics. There is no evidence of atrial fibrillation. Echocardiogram showed normal ejection fraction of 60% to 65%. 2. Hypertension. On Prn Clonidine 3. Sepsis, on vancomycin per Dr. Bynum. 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 Comfortable in NAD.Awaiting discharge. Objective Last 24 Hour Vital Signs Date Time Temp Pulse Resp B/P Pulse Ox O2 Delivery O2 Flow Rate FiO2 06/09/16 12:45 98.6 51 19 149/55 97 Room Air 06/09/16 08:42 98.4 48 19 146/51 96 Room Air 06/09/16 06:57 55 18 Room Air 21 06/09/16 04:00 98.0 53 18 143/56 96 Room Air 06/09/16 00:00 98.1 55 18 151/62 95 Room Air 06/08/16 20:00 97.9 50 18 150/58 98 Room Air 06/08/16 19:08 54 18 Room Air 21 06/08/16 16:00 98.1 50 18 132/64 94 Room Air Intake and Output 06/08/16 06/09/16 19:00 07:00 Intake Total 560 ml 480 ml Output Total 150 ml Balance 410 ml 480 ml Intake Oral 360 ml 480 ml IV Total 200 ml Output Urine Total 150 ml # Voids 3 # Bowel Movements 2 Laboratory Tests Test 06/09/16 05:15 06/09/16 14:15 White Blood Count 6.8 K/UL (4.8-10.8) Red Blood Count 4.08 M/UL (4.70-6.10) L Hemoglobin 12.7 G/DL (14.2-18.0) L Hematocrit 38.2 % (42.0-52.0) L Mean Corpuscular Volume 94 FL (80-99) Mean Corpuscular Hemoglobin 31.2 PG (27.0-31.0) H Mean Corpuscular Hemoglobin Concent 33.3 G/DL (32.0-36.0) Red Cell Distribution Width 12.5 % (11.6-14.8) Platelet Count 159 K/UL (150-450) Mean Platelet Volume 8.6 FL (6.5-10.1) Neutrophils (%) (Auto) 43.4 % (45.0-75.0) L Lymphocytes (%) (Auto) 36.8 % (20.0-45.0) Monocytes (%) (Auto) 14.6 % (1.0-10.0) H Eosinophils (%) (Auto) 4.8 % (0.0-3.0) H Basophils (%) (Auto) 0.5 % (0.0-2.0) Sodium Level 141 mEQ/L (135-145) Potassium Level 3.4 mEQ/L (3.4-4.9) Chloride Level 100 mEQ/L (98-107) Carbon Dioxide Level 26 mEQ/L (20-30) Anion Gap 15 (5-15) Blood Urea Nitrogen 14 mg/dL (7-23) Creatinine 1.0 mg/dL (0.7-1.2) Estimat Glomerular Filtration Rate mL/min (>60) Glucose Level 109 mg/dL (74-106) H Calcium Level 9.3 mg/dL (8.6-10.2) Phosphorus Level 2.4 mg/dL (2.5-4.8) L Magnesium Level 2.1 mg/dL (1.7-2.5) Vancomycin Level Trough 14.2 ug/mL (5.0-12.0) H Objective HEAD AND NECK: Shows no JVD. LUNGS: Coarse rhonchi. CARDIOVASCULAR: Shows regular S1 and S2 with no gallop or murmur. Tachycardic. ABDOMEN: Soft. EXTREMITIES: No pitting edema. ABHISHEK RODRIGUEZ Jun 09, 2016 15:23
[2016-06-09 16:00] VITALS: BP 139/59
[2016-06-09 20:00] VITALS: BP 163/94
--- NOTE | 2016-06-11 07:56 | Discharge Summary ---
Discharge Summary Hospital Course Date of Admission Jun 04, 2016 at 22:04 Date of Discharge Jun 09, 2016 at 20:59 Admitting Diagnosis sepsis HPI Fritz Alberts is a 71 year old male who was admitted on Jun 04, 2016 at 22:04 for Sepsis Hospital Course dc summary #[id number] Discharge Medications Continued Medications: Acetaminophen* (Tylenol Extra Strength*) 500 Mg Tablet 500 MG ORAL Q8H PRN for For Pain, #30 TAB 0 Refills Acidophilus/Pectin, [place] (Acidophilus Probiotic Capsule) 1 Each Capsule 1 EACH PO, CAP Ascorbic Acid* (Vitamin C*) 500 Mg Tablet 500 MG ORAL DAILY, #30 TAB 0 Refills Furosemide* (Lasix*) 40 Mg Tablet 40 MG ORAL DAILY, TAB Ibuprofen* (Motrin*) 600 Mg Tablet 600 MG ORAL Q8H PRN for For Pain, #30 TAB 0 Refills Ipratropium [place] 0.5MG/2.5ML (Ipratropium [place] 0.5MG/2.5ML) 0.2 Mg/1 Ml Solution 0.5 MG HHN Q6H PRN for Shortness of Breath, #28 EA Levetiracetam* (Levetiracetam*) 500 Mg Tablet 500 MG ORAL TWICE A DAY, #60 TAB 0 Refills Levothyroxine Sodium* (Synthroid*) 25 Mcg Tablet 50 MCG ORAL DAILY, TAB Take in the morning on an empty stomach, at least 30 minutes before food. Lidocaine/Prilocaine ([place] Cream) 30 Gm Cream..g. 1 APPLIC TOPIC EVERY 8 HOURS PRN for For Pain, #30 GM 0 Refills Methyl Salicylate/Menthol (Muscle Rub Cream) 113 Gm Cream..g. Unknown Dose TP, GM Multivitamin With Minerals (Multivitamins With Minerals*) 1 Each Tablet 1 TAB ORAL DAILY, TAB Pregabalin* (Lyrica*) 75 Mg Capsule 75 MG ORAL THREE TIMES A DAY, CAP Simvastatin (Zocor) 20 Mg Tablet 20 MG ORAL BEDTIME, TAB Thiamine Hcl* (Vitamin B-1*) 100 Mg Tablet 100 MG ORAL DAILY, #30 TAB 0 Refills Trazodone Hcl* (Desyrel*) 50 Mg Tablet 50 MG ORAL BEDTIME, TAB Discharge Discharge Disposition Patient was discharged to SNF/Subacute Facility(03) Discharge Diagnoses: Discharge Instructions Discharge Instructions Special Instructions I have been assigned to complete a D/C Summary on this account. I was not involved in the patient management Sheyla Rojas NP ([place]) Jun 11, 2016 07:56
--- NOTE | 2016-06-11 09:18 | Discharge Summary 2 SIG ---
DATE OF ADMISSION: 06/04/2016 DATE OF DISCHARGE: 06/09/2016 REASON FOR ADMISSION: 71-year-old male was brought to the emergency room from the [facility] where he resides with fever. The patient with history of dementia, and was unable to provide any information. According to paramedics, nursing staff denied cough, vomiting or diarrhea. Upon presentation, the highest temperature was 103.4, the patient was tachycardic and tachypneic, no leukocytosis,, placed on supplemental oxygen. Lactic acid was within normal limits. Chest x-ray revealed no acute cardiopulmonary pathology, but consistent with cardiomegaly. EKG revealed sinus tachycardia. Urinalysis was negative. CT of the abdomen revealed focal dilatation of colon and diverticulosis, but no other abnormality. Pro BNP was 949. Troponin was negative. Evidence of renal insufficiency upon presentation, BUN 25 and creatinine 1.5. The patient had tachycardia . The patient was given bolus of fluids and tachycardia improved. The patient admitted to the floor for further management. ADMITTING DIAGNOSES: 1. Fever. 2. Possible sepsis. 3. Congestive heart failure. 4. Hypertension. 5. Dementia. HOSPITAL COURSE: The patient admitted to the hospital. ID consult, Cardiology consult, and Pulmonary consult were requested. The patient started on empiric antibiotics. Blood cultures were negative. Urine cultures were negative. Influenza screen was negative. Stool for C. difficile was negative. Fever resolved. ID cleared to discontinue antibiotics, unclear source of fever, possible viral. Initially presented with sinus tachycardia. Cardiology consult was requested. Echo revealed ejection fraction of 60% to 65%, moderate aortic regurgitation, and no evidence of left ventricular hypertrophy. Per Cardiology, sinus tachycardia likely secondary to sepsis. The patient started on blood pressure management with clonidine on as-needed basis, which helped with heart rate as well. Heart rate stable prior to discharge. The patient with evidence of cardiomegaly and chronic diastolic heart failure. Initial proBNP 949. The patient on low dose of Lasix, which was continued and proBNP trending down. Renal insufficiency resolved likely secondary to YARIEL inhibitor, which was discontinued. Seizure precautions were maintained. No evidence of seizure activity while in the hospital. Keppra was continued. TSH within normal limits. Same dose of levothyroxine was continued. Supplemental oxygen and pulmonary toilet provided as needed. Pain management provided. Bowel regimen instituted. DVT and GI prophylaxes provided. The patient was stable for discharge to half-way facility, off antibiotics. DISCHARGE DIAGNOSES: 1. Sepsis. 2. Diastolic congestive heart failure. 3. Acute kidney injury, resolved. 4. Hypertension. 5. Sinus tachycardia, resolved. 6. Hypothyroidism. 7. Advanced dementia. 8. Seizure disorder. 9. Hyperlipidemia. 10. Obstructive sleep apnea. 11. Diverticulosis. 12. History of prostate cancer. DISCHARGE MEDICATIONS: See medication reconciliation list. DISCHARGE INSTRUCTIONS: The patient discharged to half-way facility. Follow up with medical doctor at the facility. Caleb Medrano M.D. I have been assigned to dictate discharge summary on this account and I was not involved in the patient's management. Sheyla MednesGouverneur Healthtom N.PEmilio DR: JOSUE JOB#: [id number] CC: AMANDA
== END 2016-06-09 20:59 | DRG 871 ==
LOC: EDBD 20:27 → EMR 22:02 → 4W 22:04 → EDBEDREQ 23:28
DX: A41.9 Sepsis, unspecified organism (principal); J18.9 Pneumonia, unspecified organism; I50.32 Chronic diastolic (congestive) heart failure; G30.9 Alzheimer's disease, unspecified; J44.9 Chronic obstructive pulmonary disease, unspecified; G40.909 Epilepsy, unspecified, not intractable, without status epilepticus; F02.80 Dementia in other diseases classified elsewhere, unspecified severity, without behavioral disturbance, psychotic disturbance, mood disturbance, and anxiety; Z86.73 Personal history of transient ischemic attack (TIA), and cerebral infarction without residual deficits; Z85.46 Personal history of malignant neoplasm of prostate; E03.9 Hypothyroidism, unspecified; I10 Essential (primary) hypertension; E78.00 Pure hypercholesterolemia, unspecified; G47.33 Obstructive sleep apnea (adult) (pediatric); K57.90 Diverticulosis of intestine, part unspecified, without perforation or abscess without bleeding; F32.9 Major depressive disorder, single episode, unspecified; M19.90 Unspecified osteoarthritis, unspecified site; I35.1 Nonrheumatic aortic (valve) insufficiency
CPT/HCPCS: 36415; 71010; 74176; 80048; 80053; 80202; 81003; 82550; 83605; 83690; 83735; 83880; 84100; 84153; 84154; 84443; 84484; 85025; 85610; 85730; 86710; 87040; 87070; 87081; 87086; 87205; 87493; 93005; 93306; 94664; J8499